=== PATIENT | male | born 1965 | race Caucasian/White ===

== ENCOUNTER → 2021-02-23 12:20 | Outpatient (CLI) | payer OTHER, MEDICAID, SELFPAY ==
[2021-02-23 20:11] LABS: Alanine Aminotransferase 34 IU/L (<50); Albumin 4.4 g/dL (3.5-5.0); Albumin Globulin Ratio 1.4 (1.0-2.8); Alkaline Phosphatase 105 U/L (38-126); Aspartate Aminotransferase 44 IU/L (17-59); BUN Creatinine Ratio 21.1 (6-22); Bilirubin Total 0.4 mg/dL (0.2-1.3); Blood Urea Nitrogen 19 mg/dL (9-20); Calcium 9.8 mg/dL (8.4-10.2); Carbon Dioxide 29 mmol/L (22-32); Chloride 105 mmol/L (98-107); Estimated Glomerular Filt Rate > 60.0 mL/min (>60); Globulin 3.2 g/dL (1.7-4.1); Glucose 101 mg/dL (70-100); HEMOLYSIS < 15 (0-50); Potassium 4.7 mmol/L (3.4-5.1); Sodium 141 mmol/L (137-145); Total Protein 7.6 g/dL (6.3-8.2)
== END ==
PROVIDERS: PCP Physician Assistant Medical; Visit Provider Physician Assistant Medical
DX: M72.0 Palmar fascial fibromatosis [Dupuytren] (principal); R29.898 Other symptoms and signs involving the musculoskeletal system
CPT/HCPCS: 80053

== ENCOUNTER 2022-05-03 15:21 | Observation (INO) | payer OTHER, MEDICAID, SELFPAY ==
[2022-05-03] VITALS (39 sets, daily range): BP systolic 120–177; BP diastolic 77–123; PULSE 88–151; RESP 11–41; TEMP 36.6; O2SAT 93–99; BMI 25.1
[2022-05-03 15:47] LABS: Add Manual Diff / Slide Review NO; Basophils Absolute Auto 100 /uL (0-100); Basophils Percent Auto 0.8 % (0-2); Eosinophils Absolute Auto 0 /uL (0-450); Eosinophils Percent Auto 0.2 % (2-4); Hematocrit 38.6 % (41-53); Hemoglobin 13.4 g/dL (13.5-17.5); Lymphocytes Absolute Auto 1200 /uL (1100-4500); Lymphocytes Percent Auto 13.8 % (25-40); Mean Corpuscular HGB Conc 34.8 % (30-36); Mean Corpuscular Hemoglobin 35.7 PG (26-34); Mean Corpuscular Volume 102.6 fL (80-100); Monocytes Absolute Auto 900 /uL (0-900); Monocytes Percent Auto 10.5 % (3-14); Neutrophils Absolute Auto 6400 /uL (1500-7000); Neutrophils Percent Auto 74.7 % (50-75); Platelet Count 134 X10^3/uL (150-400); Red Blood Cell Count 3.76 X10^6/uL (4.5-5.9); Red Cell Distribution Width 13.3 % (11.6-14.8); White Blood Cell Count 8.5 X10^3/uL (4.5-11.0)
--- NOTE | 2022-05-03 15:59 | ED_ITS ---
HPI - Seizure General Chief Complaint: Seizure Stated Complaint: seizure Time Seen by Provider: 05/03/22 15:46 Source: patient and EMS Mode of arrival: EMS Limitations: no limitations History of Present Illness HPI Narrative: Patient is a 57-year-old male who was brought to the emergency department for was reported to be a witnessed seizure. He staying at a hotel with a friend. The patient does admit to smoking marijuana but denies any other drugs. Does have an alcohol history of but states he has not drank in the past 24 hours. He was at the hotel with his friend when he had the seizure that was witnessed by his friend. His friend is 1 who contacted EMS. The patient does not remember the event. EMS states that there were drug paraphernalia around the individual though the patient denies any drug use. Here in the emergency department he reports no specific complaints. Does have some palpitations but no headache, shortness of breath, abdominal pain, joint pain, muscle pain. Related Data Home Medications Medication Instructions Recorded Confirmed No Known Home Medications 02/23/21 05/03/22 Allergies Allergy/AdvReac Type Severity Reaction Status Date / Time bee venom protein (honey bee) Allergy Severe Anaphylaxis Verified 05/03/22 19:24 Review of Systems Review of Systems ROS Unobtainable: All systems reviewed & are unremarkable except as noted in HPI and below Patient History Medical History Anxiety and depression (~1989) Chicken pox (~1969) Substance abuse (~1987) Social History Smoking Status: Current every day smoker Smoking Status: Current every day smoker alcohol intake frequency: 3 or more drinks per day Alcohol type: hard liquor Substance Use Type: marijuana Exam Initial Vital Signs Initial Vital Signs: Vital Signs Pulse Rate 151 H 05/03/22 15:19 Respiratory Rate 35 H 05/03/22 15:19 Blood Pressure 138/102 H 05/03/22 15:19 Pulse Oximetry 97 05/03/22 15:19 Oxygen Delivery Method 05/03/22 15:19 Const General: cooperative and No ill appearing HENMT Head: normal to inspection and normocephalic Chest Chest: normal inspection of the chest Resp Effort & Inspection: normal respiratory effort Auscultation: clear to auscultation bilaterally Cardio Rate: tachycardic Rhythm: regular rhythm GI Inspection: normal to inspection Skin General: no rashes or lesions noted Neuro General: patient alert, patient awake, patient oriented x3 and moves all extremities Cognition: normal cognition Speech: speech normal Extrem General: normal to inspection and capillary refill normal Psych Appearance: disheveled Scores GCS Main coma scale eye opening: Spontaneous Main coma scale verbal response: Orientated [place] coma scale motor response: Obey commands [place] coma scale total score: 15 Course Orders Ordered: ED Orders 05/03/22 15:20 Complete Blood Count AUTO DIFF Stat Comprehensive Metabolic Panel Stat Ethanol (ETOH) Stat 05/03/22 15:26 EKG-12 Lead Stat 05/03/22 18:40 Urine Drug Screen, Rapid Stat 05/03/22 18:58 Ictotest Urine Stat Urinalysis and Microscopic Stat Urine Culture Stat 05/03/22 19:30 BMP [Basic Metabolic Panel] Stat Lactate (Lactic Acid) Stat Procalcitonin Stat Troponin & CK Cardiac Panel Stat 05/03/22 19:31 Prolactin Stat 05/03/22 19:32 CT head/brain wo con Stat Sodium Chloride (Normal Saline 0.9%) 1,000 mls @ 1,000 mls/hr IV BOLUS ONE Stop: 05/03/22 19:43 Last Admin: 05/03/22 18:56 Dose: 1,000 mls/hr Documented By: DESIRAE Sodium Chloride (Normal Saline 0.9%) 1,000 mls @ 1,000 mls/hr IV BOLUS ONE Stop: 05/03/22 20:29 Discontinued Medications Lorazepam (Lorazepam 2 Mg/Ml Inj) 1 mg IV NOW ONE Stop: 05/03/22 18:45 Last Admin: 05/03/22 18:55 Dose: 1 mg Documented By: DESIRAE Metoprolol Tartrate (Metoprolol Tartrate 5 Mg/5 Ml Inj) 5 mg IV NOW ONE Stop: 05/03/22 16:00 Last Admin: 05/03/22 16:09 Dose: 5 mg Documented By: AT Vital Signs Vital signs: Vital Signs - 8 hr 05/03/22 15:22 05/03/22 15:19 05/03/22 15:19 Temperature 97.8 F Pulse Rate 150 H 151 H Respiratory Rate 24 35 H Blood Pressure 138/102 H 138/102 H Pulse Oximetry 96 97 Oxygen Delivery Method Room Air Room Air 05/03/22 15:30 05/03/22 15:56 05/03/22 15:56 Temperature Pulse Rate 149 H 144 H Respiratory Rate 25 H 22 Blood Pressure 120/97 H Pulse Oximetry 97 97 Oxygen Delivery Method Room Air 05/03/22 16:00 05/03/22 16:00 05/03/22 16:11 Temperature Pulse Rate 143 H 139 H Respiratory Rate 20 22 Blood Pressure 148/101 H Pulse Oximetry 96 98 Oxygen Delivery Method Room Air 05/03/22 16:11 05/03/22 16:13 05/03/22 16:13 Temperature Pulse Rate 125 H Respiratory Rate 21 Blood Pressure 156/77 H 145/83 H Pulse Oximetry 98 Oxygen Delivery Method 05/03/22 16:15 05/03/22 16:15 05/03/22 16:25 Temperature Pulse Rate 115 H 105 H Respiratory Rate 23 24 Blood Pressure 143/88 H Pulse Oximetry 98 95 Oxygen Delivery Method Room Air 05/03/22 16:25 05/03/22 16:30 05/03/22 16:30 Temperature Pulse Rate 101 H Respiratory Rate 23 Blood Pressure 153/102 H 150/102 H Pulse Oximetry 97 Oxygen Delivery Method Room Air 05/03/22 16:35 05/03/22 16:35 05/03/22 16:40 Temperature Pulse Rate 99 H 97 H Respiratory Rate 19 20 Blood Pressure 150/102 H Pulse Oximetry 95 95 Oxygen Delivery Method 05/03/22 16:40 05/03/22 16:45 05/03/22 16:45 Temperature Pulse Rate 98 H Respiratory Rate 25 H Blood Pressure 162/108 H 155/108 H Pulse Oximetry 95 Oxygen Delivery Method 05/03/22 17:00 05/03/22 17:00 05/03/22 17:15 Temperature Pulse Rate 101 H 102 H Respiratory Rate 25 H 18 Blood Pressure 157/103 H Pulse Oximetry 98 95 Oxygen Delivery Method Room Air 05/03/22 17:15 05/03/22 17:30 05/03/22 17:30 Temperature Pulse Rate 107 H Respiratory Rate 20 Blood Pressure 148/102 H 148/102 H Pulse Oximetry 98 Oxygen Delivery Method 05/03/22 17:45 05/03/22 17:45 05/03/22 17:50 Temperature Pulse Rate 116 H 106 H Respiratory Rate 23 17 Blood Pressure 177/114 H Pulse Oximetry 97 98 Oxygen Delivery Method 05/03/22 17:50 05/03/22 18:00 05/03/22 18:00 Temperature Pulse Rate 105 H Respiratory Rate 16 Blood Pressure 161/110 H 162/107 H Pulse Oximetry 97 Oxygen Delivery Method 05/03/22 18:30 05/03/22 18:49 05/03/22 18:49 Temperature Pulse Rate 103 H 139 H Respiratory Rate 25 H 41 H Blood Pressure 173/115 H Pulse Oximetry 96 98 Oxygen Delivery Method 05/03/22 19:00 05/03/22 19:01 05/03/22 19:01 Temperature Pulse Rate 111 H 112 H Respiratory Rate 22 28 H Blood Pressure 160/106 H Pulse Oximetry 96 95 Oxygen Delivery Method 05/03/22 19:15 05/03/22 19:15 Temperature Pulse Rate 106 H Respiratory Rate 26 H Blood Pressure 160/110 H Pulse Oximetry 95 Oxygen Delivery Method Room Air MDM - Seizure Lab Data Attestation: I reviewed the patient's lab results. Result diagrams: 05/03/22 15:20 05/03/22 15:20 Labs: Lab Results 05/03/22 05/03/22 05/03/22 Range/Units 15:20 15:20 15:20 WBC 8.5 (4.5-11.0) X10^3/uL RBC 3.76 L (4.5-5.9) X10^6/uL Hgb 13.4 L (13.5-17.5) g/dL Hct 38.6 L (41-53) % MCV 102.6 H (80-100) fL MCH 35.7 H (26-34) PG MCHC 34.8 (30-36) % RDW 13.3 (11.6-14.8) % Plt Count 134 L (150-400) X10^3/uL Neut % (Auto) 74.7 (50-75) % Lymph % (Auto) 13.8 L (25-40) % [place] % (Auto) 10.5 (3-14) % Eos % (Auto) 0.2 L (2-4) % Baso % (Auto) 0.8 (0-2) % Neut # (Auto) 6400 (9958-5159) /uL Lymph # (Auto) 1200 (3042-1129) /uL [place] # (Auto) 900 (0-900) /uL Eos # (Auto) 0 (0-450) /uL Baso # (Auto) 100 (0-100) /uL Sodium 136 L (137-145) mmol/L Potassium 3.3 L (3.4-5.1) mmol/L Chloride 91 L (98-107) mmol/L Carbon Dioxide 14 L (22-32) mmol/L BUN 10 (9-20) mg/dL Creatinine 0.81 (0.66-1.25) mg/dL Estimated GFR > 60 (>60) mL/min BUN/Creatinine Ratio 12.3 (6-22) Glucose 178 H (70-100) mg/dL Calcium 9.0 (8.4-10.2) mg/dL Total Bilirubin 2.6 H (0.2-1.3) mg/dL AST 228 H (17-59) IU/L ALT 55 H (<50) IU/L Alkaline Phosphatase 143 H (38-126) U/L Total Protein 8.9 H (6.3-8.2) g/dL Albumin 4.8 (3.5-5.0) g/dL Globulin 4.1 (1.7-4.1) g/dL Albumin/Globulin Ratio 1.2 (1.0-2.8) Urine Color Urine Appearance Urine pH (4.5-8.0) Ur Specific [place] (1.000-1.035) Urine Protein (Negative) Urine Glucose (UA) (Negative) g/dL Urine Ketones (NEGATIVE) Urine Occult Blood (Negative) Urine Nitrate (Negative) Urine Bilirubin (NEGATIVE) Ur Bilirubin Confirm (Negative) Urine Urobilinogen (0.2) E.U./dL Ur Leukocyte Esterase (NEGATIVE) Urine RBC (0-5/HPF) Urine WBC (0-5/HPF) Ur Squamous Epith Cells (0-5/HPF) Amorphous Sediment Urine Bacteria (None) Hyaline Casts (None) Urine Mucus (Negative) Ur Culture Indicated? U Opiates 300ng/mL cut (Negative) Ur Oxycodone Screen (Negative) Urine Methadone Screen (Negative) Ur Barbiturates Screen (Negative) U Tricyclic Antidepress (Negative) Ur Phencyclidine Scrn (Negative) Ur Amphetamines Screen (Negative) U Methamphetamines Scrn (Negative) Ur MDMA Scrn (Ecstasy) (Negative) U Benzodiazepines Scrn (Negative) Urine Cocaine Screen (Negative) U Marijuana (THC) Screen (Negative) Ethyl Alcohol < 10 ( - 10) mg/dL 05/03/22 05/03/22 Range/Units 18:40 18:58 WBC (4.5-11.0) X10^3/uL RBC (4.5-5.9) X10^6/uL Hgb (13.5-17.5) g/dL Hct (41-53) % MCV (80-100) fL MCH (26-34) PG MCHC (30-36) % RDW (11.6-14.8) % Plt Count (150-400) X10^3/uL Neut % (Auto) (50-75) % Lymph % (Auto) (25-40) % [place] % (Auto) (3-14) % Eos % (Auto) (2-4) % Baso % (Auto) (0-2) % Neut # (Auto) (5735-7034) /uL Lymph # (Auto) (2229-0846) /uL [place] # (Auto) (0-900) /uL Eos # (Auto) (0-450) /uL Baso # (Auto) (0-100) /uL Sodium (137-145) mmol/L Potassium (3.4-5.1) mmol/L Chloride (98-107) mmol/L Carbon Dioxide (22-32) mmol/L BUN (9-20) mg/dL Creatinine (0.66-1.25) mg/dL Estimated GFR (>60) mL/min BUN/Creatinine Ratio (6-22) Glucose (70-100) mg/dL Calcium (8.4-10.2) mg/dL Total Bilirubin (0.2-1.3) mg/dL AST (17-59) IU/L ALT (<50) IU/L Alkaline Phosphatase (38-126) U/L Total Protein (6.3-8.2) g/dL Albumin (3.5-5.0) g/dL Globulin (1.7-4.1) g/dL Albumin/Globulin Ratio (1.0-2.8) Urine Color Dark yellow Urine Appearance Clear Urine pH 6.5 (4.5-8.0) Ur Specific [place] 1.020 (1.000-1.035) Urine Protein 3+ H (Negative) Urine Glucose (UA) Negative (Negative) g/dL Urine Ketones 1+ H (NEGATIVE) Urine Occult Blood 2+ H (Negative) Urine Nitrate Negative (Negative) Urine Bilirubin 2+ H (NEGATIVE) Ur Bilirubin Confirm Positive H (Negative) Urine Urobilinogen 4.0 H (0.2) E.U./dL Ur Leukocyte Esterase Trace H (NEGATIVE) Urine RBC 1-5/hpf (0-5/HPF) Urine WBC 1-5/hpf (0-5/HPF) Ur Squamous Epith Cells 0-1 /hpf (0-5/HPF) Amorphous Sediment 1+ Urine Bacteria Occasional (0-1) (None) Hyaline Casts 5-10/lpf (None) Urine Mucus 1+ H (Negative) Ur Culture Indicated? Specimen cultured U Opiates 300ng/mL cut Negative (Negative) Ur Oxycodone Screen Negative (Negative) Urine Methadone Screen Negative (Negative) Ur Barbiturates Screen Negative (Negative) U Tricyclic Antidepress Negative (Negative) Ur Phencyclidine Scrn Negative (Negative) Ur Amphetamines Screen Negative (Negative) U Methamphetamines Scrn Negative (Negative) Ur MDMA Scrn (Ecstasy) Negative (Negative) U Benzodiazepines Scrn Negative (Negative) Urine Cocaine Screen Negative (Negative) U Marijuana (THC) Screen Positive H (Negative) Ethyl Alcohol ( - 10) mg/dL ECG Data Attestation: I personally reviewed and interpreted this ECG as follows: Interpretation: Initial EKG Sinus tachycardia Ventricular rate 147 Normal axis Normal QRS Normal QTC No ST T wave changes Repeat EKG Sinus rhythm Ventricular rate 99 Normal axis Normal QRS Normal QTC No ST T wave changes MDM Narrative Medical decision making narrative: Per EMS this did sound like a seizure. Patient has never had seizures in the past. He was not postictal here in the ER. Patient tachycardic upon arrival. After short period of observation is tachycardic did not improve so he was given labetalol which then did bring his heart rate down to the low 100s. He is no specific complaints related to the seizures. No joint pain. No muscle pain. No neck pain. No headache. He denies alcohol use nor drug use except for marijuana. Patient is afebrile. No abdominal tenderness. Patient is having shaking. He is alert oriented x3. GCS of 15. Attempted to stand the patient at bedside however he was very unsteady and was shaking. Additional lab tests ordered. Alcohol level negative. Is acidotic on his BNP. Fluids administered. Rate continues to be less than 105. Care turned over to Dr. Youngblood at change of shift to continue to evaluate and disposition. Discharge Plan Departure Prescriptions: No Action No Known Home Medications Referrals: Teresa Davila PA-C [Primary Care Provider] -
[2022-05-03 16:00] LABS: Albumin 4.8 g/dL (3.5-5.0); Albumin Globulin Ratio 1.2 (1.0-2.8); Alkaline Phosphatase 143 U/L (38-126); BUN Creatinine Ratio 12.3 (6-22); Bilirubin Total 2.6 mg/dL (0.2-1.3); Blood Urea Nitrogen 10 mg/dL (9-20); Carbon Dioxide 14 mmol/L (22-32); Chloride 91 mmol/L (98-107); Estimated Glomerular Filt Rate > 60 mL/min (>60); Globulin 4.1 g/dL (1.7-4.1); Glucose 178 mg/dL (70-100); HEMOLYSIS < 15 (0-50); Potassium 3.3 mmol/L (3.4-5.1); Sodium 136 mmol/L (137-145); Total Protein 8.9 g/dL (6.3-8.2)
[2022-05-03 16:06] LABS: Aspartate Aminotransferase 228 IU/L (17-59)
[2022-05-03 16:07] LABS: Alanine Aminotransferase 55 IU/L (<50)
[2022-05-03] MEDS: METOPROLOL TARTRATE 5 MG/5 ML INJ IV (16:09)
--- NOTE | 2022-05-03 18:12 | PC.NURSE ---
pt states he doesn't drink alcohol much, and hasn't drank in days. i asked pt to sit up to prepare for ambulation and he started having tremors when he reach for the railing.
[2022-05-03] MEDS: LORazepam 2 MG/ML INJ 1 MG IV ×2 (18:55→21:02)
[2022-05-03] MEDS: SODIUM CHLORIDE 0.9% 1,000 ML 1000 ML IV ×2 (18:56→20:16)
[2022-05-03 19:04] LABS: Ur Creatinine Normal (Normal); Ur Specific Gravity Normal (Normal); Urine pH Normal (Normal)
[2022-05-03 19:05] LABS: UR Morphine/Opiate cutoff 300 Negative (Negative); Urine Amphetamines Negative (Negative); Urine Barbiturates Negative (Negative); Urine Benzodiazepines Negative (Negative); Urine Cocaine Negative (Negative); Urine MDMA Negative (Negative); Urine Methadone Negative (Negative); Urine Methamphetamines Negative (Negative); Urine Oxycodone Negative (Negative); Urine Phencyclidine Negative (Negative); Urine Tetrahydrocannabinol Positive (Negative); Urine Tricyclic Antidepressant Negative (Negative)
[2022-05-03 19:11] LABS: Appearance Urine UA CLEAR; Bilirubin Urine UA 2+ (NEGATIVE); Glucose Urine UA NEGATIVE (Negative); Ketones Urine UA 1+ (NEGATIVE); Leukocyte Esterase Urine UA TRACE (NEGATIVE); Nitrite Urine UA NEGATIVE (Negative); Occult Blood Urine UA 2+ (Negative); Protein Urine UA 3+ (Negative); pH Urine UA 6.5 (4.5-8.0)
[2022-05-03 19:17] LABS: Ethanol (ETOH) < 10 mg/dL
[2022-05-03 19:21] LABS: Color Urine UA Dark Yellow
--- NOTE | 2022-05-03 19:22 | PC.NURSE ---
Pt sitting up in stretcher using personal phone, hands tremoring, pt breathing even and unlabored, denies pain at this time.
[2022-05-03 19:24] LABS: Amorphous Sediment Urine 1+; Bacteria Urine Occasional (0-1); Culture Indicated Urine Specimen Cultured; Hyaline Casts Urine 5-10/LPF; Ictotest Urine Positive (Negative); Mucus Urine 1+ (Negative); RBC Urine 1-5/HPF (0-5/HPF); Squamous Epithelial Cell Urine 0-1 /HPF (0-5/HPF); WBC Urine 1-5/HPF (0-5/HPF)
--- NOTE | 2022-05-03 19:32 | DI.CT.S_ITS ---
PROCEDURE: CT HEAD/BRAIN WO CON INDICATIONS: new seizure TECHNIQUE: Noncontrast 4.5 mm thick angled axial sections acquired from the foramen magnum to the vertex, with coronal and sagittal reformats. For radiation dose reduction, the following was used: automated exposure control, adjustment of mA and/or kV according to patient size. COMPARISON: None. FINDINGS: Image quality: Excellent. CSF spaces: Basal cisterns are patent. No extra-axial fluid collections. Ventricles are normal in size and shape. Brain: No intracranial hemorrhage, mass, or mass effect. Jimenez-white matter interface appears preserved. Skull and face: Calvarium and visualized facial bones are intact, without suspicious lesions. Sinuses: Visualized sinuses and mastoids are clear. IMPRESSION: 1. No acute intracranial abnormality. Dictated by: Mario Parra M.D. on 05/03/2022 at 20:02 Approved by: Mario Parra M.D. on 05/03/2022 at 20:05
[2022-05-03 19:56] LABS: Creatine Kinase 182 U/L (55-170)
[2022-05-03 20:04] LABS: BUN Creatinine Ratio 16.7 (6-22); Blood Urea Nitrogen 11 mg/dL (9-20); Calcium 8.2 mg/dL (8.4-10.2); Carbon Dioxide 27 mmol/L (22-32); Chloride 93 mmol/L (98-107); Estimated Glomerular Filt Rate > 60 mL/min (>60); Glucose 105 mg/dL (70-100); HEMOLYSIS < 15 (0-50); Potassium 3.2 mmol/L (3.4-5.1); Sodium 134 mmol/L (137-145)
[2022-05-03 20:08] LABS: Lactate (Lactic Acid) 12.5 mmol/L (0.7-2.1)
[2022-05-03 20:09] LABS: Troponin I < 0.012 ng/mL (0.01-0.034)
[2022-05-03 20:11] LABS: CKMB % Relative Index 1.3 % (1.5-5.0); Creatine Kinase MB 2.41 ng/mL (<2.37)
[2022-05-03 20:14] LABS: Procalcitonin 0.21 ng/mL (<0.5)
[2022-05-03] MEDS: PHENobarbital 65 MG/ML VIAL 130 MG IV (21:02)
[2022-05-03 21:23] LABS: COVID19 -Nasal RAPID Negative (Negative)
[2022-05-03 21:45] LABS: Reflexed Lactate in 2 Hours Y
[2022-05-04] VITALS (23 sets, daily range): BP systolic 135–157; BP diastolic 91–114; PULSE 84–122; RESP 3–79; TEMP 36.6–37.4; O2SAT 94–99; BMI 25.1
--- NOTE | 2022-05-04 00:30 | DI.US.S_ITS ---
PROCEDURE: US ABDOMEN LIMITED INDICATIONS: CHOLESTATIC INJURY - please evaluate for HEPATOBILIARY DISEASE TECHNIQUE: Real-time focused scanning was performed of the abdomen, with image documentation. COMPARISON: None. FINDINGS: The liver demonstrates enlarged size. The liver demonstrates generalized prominently increased echogenicity. This decreases ultrasound sensitivity for detection of hepatic masses. The likely cyst is seen involving the left lobe of the liver that measures up to 1 cm. Evaluation of the main portal vein is limited, secondary to the liver echogenicity, without good detection of flow within the main portal vein. The gallbladder is prominent in size measuring 9.8 x 4 x 2.4 cm. No findings of gallstones or sludge are seen. The gallbladder wall is not thickened, measuring 3 mm or less. No specific pericholecystic fluid is seen. The sonographic Kline sign is negative. The biliary system and pancreas are not well seen. This study is further limited by bowel gas. IMPRESSION: Enlarged, fatty liver, which limits evaluation. No significant gallbladder abnormality is seen. The biliary tree is not well seen. Flow within the main portal vein is not well seen. If clinically appropriate, please consider a follow-up liver protocol CT (without and with contrast) for further evaluation. Dictated by: Joe Singh M.D. on 05/04/2022 at 8:24 Approved by: Joe Singh M.D. on 05/04/2022 at 8:26
[2022-05-04 01:27] LABS: INR 1.5 (0.9-1.3); Prothrombin Time 17.3 SECONDS (10.1-12.7)
[2022-05-04 01:30] LABS: Ammonia (NH3) 16 umol/L (9-30)
[2022-05-04 01:31] LABS: Alanine Aminotransferase 35 IU/L (<50); Albumin 4.1 g/dL (3.5-5.0); Albumin Globulin Ratio 1.1 (1.0-2.8); Alkaline Phosphatase 117 U/L (38-126); Aspartate Aminotransferase 176 IU/L (17-59); Bilirubin Total 2.5 mg/dL (0.2-1.3); Bilirubin Unconjugated 1.5 mg/dL (0.0-1.1); Globulin 3.6 g/dL (1.7-4.1); HEMOLYSIS < 15 (0-50); Lactate Dehydrogenase 253 U/L (120-246); Total Protein 7.7 g/dL (6.3-8.2)
[2022-05-04 01:41] LABS: Gamma Glutamyl Transpeptidase 2231 U/L (15-73)
[2022-05-04 01:47] LABS: NT-proBNP (BNP-Adult 18+) 185 pg/mL (<125)
[2022-05-04] MEDS: SODIUM CHLORIDE 0.9% 1,000 ML 100 ML IV (03:13)
--- NOTE | 2022-05-04 06:05 | PM.HP.1 ---
History of Present Illness History of Present Illness Date Patient Seen: 05/04/22 Time Patient Seen: 00:23 Chief complaint: seizure Narrative: Lane Bernstein is a 57-year-old male with no significant medical history who was brought to the emergency department for was reported to be a witnessed seizure.? He staying at a hotel with a friend.? The patient does admit to smoking marijuana but denies any other drugs.? Does have an alcohol history of but states he has not drank in the past 72 hours.? He was at the hotel with his friend when he had the seizure that was witnessed by his friend.? His friend is 1 who contacted EMS.? The patient does not remember the event.? EMS states that there were drug paraphernalia around the individual though the patient denies any drug use.? Here in the emergency department he reports no specific complaints.? Does have some palpitations but no headache, shortness of breath, abdominal pain, joint pain, muscle pain. Patiently reportedly drinks approximately 1 pt of vodka a day and has done so for several decades daily smoker and uses marijuana no other substances. At the time of admit patient is resting more comfortably, denies chest pain, shortness breast, headache, changes in vision, weakness, numbness, abdominal pain, nausea, vomiting, tremors have resolved, urinary symptoms, bowel issues, no known falls, loss of consciousness is not hit his head, skin infections, recent illness injury or trauma. Temp 97.8?, BP initially 168/123 HR 113, R 28, O2 saturation 99% on room air. Repeat blood pressure 152/96, HGB 13.4/HCT 38.6, MCV 102.6, MCH 35.7, platelets 134, sodium 134, chloride 93, bili 2.6, AST 228, ALT 55, alk-phos 143 calcium 8.2, lactate 12.5, repeat 1.0, total creatinine kinase 182, CK-2:2.41, initial troponin WNL, total protein 8.9, procalcitonin WNL, tox screen positive for THC, alcohol WNL, patient's urine was positive for protein 3+, ketones 1+, blood 2+, bili 2+, urobilinogen 4 urine culture pending patient has a are factor: 1, head CT is negative for any acute intracranial process. Patient admitted for acute alcohol withdrawal with reported witnessed seizure, hypokalemia, hyper bilirubinemia and elevated liver enzymes. Patient History Medical History Anxiety and depression (~1989) Chicken pox (~1969) Substance abuse (~1987) Comment: No surgical history Family & Social History Family History Mother Depression Father Parkinson's disease, Lewy body Safety & Behavioral: Feels Safe in Current Yes Environment Been Physically Hurt or No Threatened By a Person Tobacco & Substance use: Smoking Status Current every day smoker alcohol intake frequency 3 or more drinks per day -1 pt of vodka daily for several decades Substance Use Type marijuana Meds Home Medications and Allergies Home Medications Medication Instructions Recorded Confirmed Type No Known Home Medications 02/23/21 05/03/22 History Allergies Allergy/AdvReac Type Severity Reaction Status Date / Time bee venom protein (honey bee) Allergy Severe Anaphylaxis Verified 05/03/22 19:24 Review of Systems Review of Systems Narrative: All 12 point systems reviewed with the patient and are negative except otherwise documented. Exam Vital Signs (past 8 hours): - 05/03/22 22:15 05/03/22 22:15 05/03/22 22:30 Pulse Rate 88 Respiratory Rate 24 Blood Pressure 162/106 H 161/113 H Pulse Oximetry 98 Oxygen Delivery Method 05/03/22 22:30 05/03/22 22:45 05/03/22 22:45 Pulse Rate 93 H 93 H Respiratory Rate 19 23 Blood Pressure 150/99 H Pulse Oximetry 97 96 Oxygen Delivery Method Room Air 05/03/22 23:00 05/03/22 23:01 05/03/22 23:01 Pulse Rate 117 H 113 H Respiratory Rate 29 H 28 H Blood Pressure 168/123 H Pulse Oximetry 99 99 Oxygen Delivery Method 05/03/22 23:30 05/04/22 00:00 05/04/22 00:00 Pulse Rate 91 H 92 H Respiratory Rate 22 24 Blood Pressure 157/102 H Pulse Oximetry 97 97 Oxygen Delivery Method 05/04/22 00:30 05/04/22 00:56 05/04/22 00:56 Pulse Rate 94 H 118 H Respiratory Rate 26 H 3 L Blood Pressure 153/103 H Pulse Oximetry 97 97 Oxygen Delivery Method 05/04/22 01:00 05/04/22 01:00 05/04/22 01:30 Pulse Rate 113 H 97 H Respiratory Rate 8 L 21 Blood Pressure 154/95 H Pulse Oximetry 96 96 Oxygen Delivery Method 05/04/22 02:00 05/04/22 02:00 05/04/22 02:30 Pulse Rate 101 H 90 Respiratory Rate 28 H 21 Blood Pressure 155/104 H Pulse Oximetry 98 94 Oxygen Delivery Method 05/04/22 03:00 05/04/22 03:18 05/04/22 03:18 Pulse Rate 96 H 103 H Respiratory Rate 13 16 Blood Pressure 156/98 H 156/98 H Pulse Oximetry 96 98 Oxygen Delivery Method 05/04/22 03:30 05/04/22 04:00 05/04/22 04:00 Pulse Rate 91 H 84 Respiratory Rate 22 14 Blood Pressure 144/91 H Pulse Oximetry 96 96 Oxygen Delivery Method 05/04/22 04:30 Pulse Rate 110 H Respiratory Rate 79 H Blood Pressure Pulse Oximetry 94 Oxygen Delivery Method Oxygen Delivery Method Room Air Narrative Exam Narrative: General: Patient is a well-developed, well-nourished in no distress at this time. HEENT: Normocephalic, atraumatic, extraocular muscles intact, oral pharynx is clear and mucous membranes are moist. Neck is supple and symmetric, trachea is midline, no adenopathy, no thyroid enlargement, nontender, no masses palpated. Negative for JVD Chest: Normal AP diameter and contour without kyphoscoliosis, no nasal flaring, retractions, or tachypneic labored Lungs: Auscultation of all lung genao are clear without adventitious sounds, wheezes, rhonchi, or rales. Cardio: S1 & S2 with regular rate and rhythm without murmur, rubs, or gallops, no carotid bruit, no cardiac pulsations present. Abdomen: Soft nontender, negative for organomegaly, or masses. Bowel sounds are present in all 4 quadrants without guarding or rebound, no CVA tenderness. Musculoskeletal: Muscle strength and tone are equal within normal limits, no deformity, crepitus, effusions, cyanosis, clubbing or edema present. Full range of motion intact radial and pedal pulses are normal. Skin: No icterus noted, Warm dry and intact without rashes, ulcerations or petechiae. Neuro: Alert and orientated x3, strength is +5/5 in all extremities, sensation to touch intact, no gross deficits noted of cranial nerves. Psych: Patient has a well-kept appearance, appropriate affect, mental status attitude thought context and judgment are appropriate for age. Objective Labs Result Diagrams: 05/03/22 15:20 05/03/22 19:36 Labs: Laboratory Results - last 24 hr 05/03/22 05/03/22 05/03/22 15:20 15:20 15:20 WBC 8.5 RBC 3.76 L Hgb 13.4 L Hct 38.6 L MCV 102.6 H MCH 35.7 H MCHC 34.8 RDW 13.3 Plt Count 134 L Neut % (Auto) 74.7 Lymph % (Auto) 13.8 L [place] % (Auto) 10.5 Eos % (Auto) 0.2 L Baso % (Auto) 0.8 Neut # (Auto) 6400 Lymph # (Auto) 1200 [place] # (Auto) 900 Eos # (Auto) 0 Baso # (Auto) 100 PT INR Sodium 136 L Potassium 3.3 L Chloride 91 L Carbon Dioxide 14 L BUN 10 Creatinine 0.81 Estimated GFR > 60 BUN/Creatinine Ratio 12.3 Glucose 178 H Lactate Calcium 9.0 Magnesium Total Bilirubin 2.6 H Conjugated Bilirubin Unconjugated Bilirubin GGT AST 228 H ALT 55 H Alkaline Phosphatase 143 H Ammonia Lactate Dehydrogenase Total Creatine Kinase 182 H CK-MB (CK-2) 2.41 H CK-MB (CK-2) Rel Index 1.3 L Troponin I < 0.012 NT-Pro-B Natriuret Pep Total Protein 8.9 H Albumin 4.8 Globulin 4.1 Albumin/Globulin Ratio 1.2 Procalcitonin 0.21 Prolactin Urine Color Urine Appearance Urine pH Ur Specific [place] Urine Protein Urine Glucose (UA) Urine Ketones Urine Occult Blood Urine Nitrate Urine Bilirubin Ur Bilirubin Confirm Urine Urobilinogen Ur Leukocyte Esterase Urine RBC Urine WBC Ur Squamous Epith Cells Amorphous Sediment Urine Bacteria Hyaline Casts Urine Mucus Ur Culture Indicated? U Opiates 300ng/mL cut Ur Oxycodone Screen Urine Methadone Screen Ur Barbiturates Screen U Tricyclic Antidepress Ur Phencyclidine Scrn Ur Amphetamines Screen U Methamphetamines Scrn Ur MDMA Scrn (Ecstasy) U Benzodiazepines Scrn Urine Cocaine Screen U Marijuana (THC) Screen Ethyl Alcohol < 10 SARS-CoV-2 (PCR) 05/03/22 05/03/22 05/03/22 15:20 18:40 18:58 WBC RBC Hgb Hct MCV MCH MCHC RDW Plt Count Neut % (Auto) Lymph % (Auto) [place] % (Auto) Eos % (Auto) Baso % (Auto) Neut # (Auto) Lymph # (Auto) [place] # (Auto) Eos # (Auto) Baso # (Auto) PT INR Sodium Potassium Chloride Carbon Dioxide BUN Creatinine Estimated GFR BUN/Creatinine Ratio Glucose Lactate 12.5 H* Calcium Magnesium Total Bilirubin Conjugated Bilirubin Unconjugated Bilirubin GGT AST ALT Alkaline Phosphatase Ammonia Lactate Dehydrogenase Total Creatine Kinase CK-MB (CK-2) CK-MB (CK-2) Rel Index Troponin I NT-Pro-B Natriuret Pep Total Protein Albumin Globulin Albumin/Globulin Ratio Procalcitonin Prolactin Urine Color Dark yellow Urine Appearance Clear Urine pH 6.5 Ur Specific [place] 1.020 Urine Protein 3+ H Urine Glucose (UA) Negative Urine Ketones 1+ H Urine Occult Blood 2+ H Urine Nitrate Negative Urine Bilirubin 2+ H Ur Bilirubin Confirm Positive H Urine Urobilinogen 4.0 H Ur Leukocyte Esterase Trace H Urine RBC 1-5/hpf Urine WBC 1-5/hpf Ur Squamous Epith Cells 0-1 /hpf Amorphous Sediment 1+ Urine Bacteria Occasional (0-1) Hyaline Casts 5-10/lpf Urine Mucus 1+ H Ur Culture Indicated? Specimen cultured U Opiates 300ng/mL cut Negative Ur Oxycodone Screen Negative Urine Methadone Screen Negative Ur Barbiturates Screen Negative U Tricyclic Antidepress Negative Ur Phencyclidine Scrn Negative Ur Amphetamines Screen Negative U Methamphetamines Scrn Negative Ur MDMA Scrn (Ecstasy) Negative U Benzodiazepines Scrn Negative Urine Cocaine Screen Negative U Marijuana (THC) Screen Positive H Ethyl Alcohol SARS-CoV-2 (PCR) 05/03/22 05/03/22 05/03/22 19:30 19:36 19:36 WBC RBC Hgb Hct MCV MCH MCHC RDW Plt Count Neut % (Auto) Lymph % (Auto) [place] % (Auto) Eos % (Auto) Baso % (Auto) Neut # (Auto) Lymph # (Auto) [place] # (Auto) Eos # (Auto) Baso # (Auto) PT INR Sodium 134 L Potassium 3.2 L Chloride 93 L Carbon Dioxide 27 BUN 11 Creatinine 0.66 Estimated GFR > 60 BUN/Creatinine Ratio 16.7 Glucose 105 H Lactate 1.0 Calcium 8.2 L Magnesium Total Bilirubin Conjugated Bilirubin Unconjugated Bilirubin GGT AST ALT Alkaline Phosphatase Ammonia Lactate Dehydrogenase Total Creatine Kinase CK-MB (CK-2) CK-MB (CK-2) Rel Index Troponin I NT-Pro-B Natriuret Pep Total Protein Albumin Globulin Albumin/Globulin Ratio Procalcitonin Prolactin 5.0 Urine Color Urine Appearance Urine pH Ur Specific [place] Urine Protein Urine Glucose (UA) Urine Ketones Urine Occult Blood Urine Nitrate Urine Bilirubin Ur Bilirubin Confirm Urine Urobilinogen Ur Leukocyte Esterase Urine RBC Urine WBC Ur Squamous Epith Cells Amorphous Sediment Urine Bacteria Hyaline Casts Urine Mucus Ur Culture Indicated? U Opiates 300ng/mL cut Ur Oxycodone Screen Urine Methadone Screen Ur Barbiturates Screen U Tricyclic Antidepress Ur Phencyclidine Scrn Ur Amphetamines Screen U Methamphetamines Scrn Ur MDMA Scrn (Ecstasy) U Benzodiazepines Scrn Urine Cocaine Screen U Marijuana (THC) Screen Ethyl Alcohol SARS-CoV-2 (PCR) 05/03/22 05/04/22 05/04/22 21:07 01:11 01:11 WBC RBC Hgb Hct MCV MCH MCHC RDW Plt Count Neut % (Auto) Lymph % (Auto) [place] % (Auto) Eos % (Auto) Baso % (Auto) Neut # (Auto) Lymph # (Auto) [place] # (Auto) Eos # (Auto) Baso # (Auto) PT 17.3 H INR 1.5 H Sodium Potassium Chloride Carbon Dioxide BUN Creatinine Estimated GFR BUN/Creatinine Ratio Glucose Lactate Calcium Magnesium 1.0 L Total Bilirubin Conjugated Bilirubin Unconjugated Bilirubin GGT AST ALT Alkaline Phosphatase Ammonia Lactate Dehydrogenase Total Creatine Kinase CK-MB (CK-2) CK-MB (CK-2) Rel Index Troponin I NT-Pro-B Natriuret Pep Total Protein Albumin Globulin Albumin/Globulin Ratio Procalcitonin Prolactin Urine Color Urine Appearance Urine pH Ur Specific [place] Urine Protein Urine Glucose (UA) Urine Ketones Urine Occult Blood Urine Nitrate Urine Bilirubin Ur Bilirubin Confirm Urine Urobilinogen Ur Leukocyte Esterase Urine RBC Urine WBC Ur Squamous Epith Cells Amorphous Sediment Urine Bacteria Hyaline Casts Urine Mucus Ur Culture Indicated? U Opiates 300ng/mL cut Ur Oxycodone Screen Urine Methadone Screen Ur Barbiturates Screen U Tricyclic Antidepress Ur Phencyclidine Scrn Ur Amphetamines Screen U Methamphetamines Scrn Ur MDMA Scrn (Ecstasy) U Benzodiazepines Scrn Urine Cocaine Screen U Marijuana (THC) Screen Ethyl Alcohol SARS-CoV-2 (PCR) Negative 05/04/22 05/04/22 05/04/22 01:11 01:11 01:11 WBC RBC Hgb Hct MCV MCH MCHC RDW Plt Count Neut % (Auto) Lymph % (Auto) [place] % (Auto) Eos % (Auto) Baso % (Auto) Neut # (Auto) Lymph # (Auto) [place] # (Auto) Eos # (Auto) Baso # (Auto) PT INR Sodium Potassium Chloride Carbon Dioxide BUN Creatinine Estimated GFR BUN/Creatinine Ratio Glucose Lactate Calcium Magnesium Total Bilirubin 2.5 H Conjugated Bilirubin 0.0 Unconjugated Bilirubin 1.5 H GGT 2231 H AST 176 H ALT 35 Alkaline Phosphatase 117 Ammonia 16 Lactate Dehydrogenase 253 H Total Creatine Kinase CK-MB (CK-2) CK-MB (CK-2) Rel Index Troponin I NT-Pro-B Natriuret Pep 185 H Total Protein 7.7 Albumin 4.1 Globulin 3.6 Albumin/Globulin Ratio 1.1 Procalcitonin Prolactin Urine Color Urine Appearance Urine pH Ur Specific [place] Urine Protein Urine Glucose (UA) Urine Ketones Urine Occult Blood Urine Nitrate Urine Bilirubin Ur Bilirubin Confirm Urine Urobilinogen Ur Leukocyte Esterase Urine RBC Urine WBC Ur Squamous Epith Cells Amorphous Sediment Urine Bacteria Hyaline Casts Urine Mucus Ur Culture Indicated? U Opiates 300ng/mL cut Ur Oxycodone Screen Urine Methadone Screen Ur Barbiturates Screen U Tricyclic Antidepress Ur Phencyclidine Scrn Ur Amphetamines Screen U Methamphetamines Scrn Ur MDMA Scrn (Ecstasy) U Benzodiazepines Scrn Urine Cocaine Screen U Marijuana (THC) Screen Ethyl Alcohol SARS-CoV-2 (PCR) Assessment & Plan Assessment & Plan narrative: Lane Bernstein is a 57-year-old male with no significant medical history who was brought to the emergency department for was reported to be a witnessed seizure, secondary to acute alcohol withdrawal times 72 hours. Patient has no known history of seizure disorder, is admitted for acute alcohol withdrawal. 1. Acute alcohol withdrawal, with reported seizure, long-term alcohol abuse, acute on chronic, present on admission -patient was initially thought to be admitted to the ICU but was found to be hemodynamically stable withdrawal symptoms controlled with medication and no signs or symptoms of seizure so was changed to acute care admit status. Patient is currently boarding in ED -patient admitted under alcohol withdrawal protocol, thiamine and folic acid, seizure precautions, aspiration precautions, neuro checks as needed. -patient was given a loading dose of phenobarbital in ED, through the night will continue with 130 mg IV dose of phenobarbital as needed for>sbp 150, HR>110, or withdrawal agitation -will initiate phenobarbital oral Peewee: 60 mg p.o. q.i.d. day 1, 60 mg p.o. t.i.d. day 2, 60 mg p.o. b.i.d. day 3, 60 mg p.o. q.day -NS at 100 cc/HR 2. Hypokalemia, acute, present on admission secondary to alcohol withdrawal/abuse, present on admission -potassium 3.2-ordered p.o. 40 mEq potassium supplement -monitor electrolytes 3. Elevated liver enzymes with hyperbilirubinemia, acute, present on admission -R factor: 1-bili 2.6, AST 228, ALT 55, alk-phos 143, urine positive for bilirubin, and urobilinogen -labs are suggestive of cholestatic injury, and or direct hepatobiliary disease -ordered abdominal ultrasound -ordered lipids, magnesium, hepatitis panel, ammonia, LDH, GGT Code status: Full Surrogate decision maker: Adela Bernstein sister GALILEO PCR:Negative DVT/VTE prophylaxis: Lovenox and SCDs Disposition: Patient admitted to acute care for alcohol withdrawal with possible seizure, possible cholestatic injury expected length of stay greater than 2 midnights. I have utilized all available immediate resources to obtain, update, or review the patient's current medications. I confirmed that the patient's advanced care plan is present, Code status is documented and/or surrogate decision maker is listed in the patient's medical record. I have personally reviewed patient's chart notes from PCP, specialists, diagnostic imaging, and laboratory, Time Spent With Patient Critical Care time: I spent a total of [] minutes of critical care time on this patient's care today; this time is exclusive of procedural time.
[2022-05-04] MEDS: POTASSIUM CHLORIDE 20 MEQ TAB 40 MEQ PO (06:45)
[2022-05-04] MEDS: PANTOPRAZOLE DR 40 MG TABLET PO (06:45)
[2022-05-04] MEDS: MAGNESIUM SULFATE 4 GM/100 ML PIGGYBACK IV (06:45)
[2022-05-04 06:49] LABS: Add Manual Diff / Slide Review NO; Basophils Absolute Auto 100 /uL (0-100); Basophils Percent Auto 0.9 % (0-2); Eosinophils Absolute Auto 0 /uL (0-450); Eosinophils Percent Auto 0.6 % (2-4); Hematocrit 36.1 % (41-53); Hemoglobin 12.6 g/dL (13.5-17.5); Lymphocytes Absolute Auto 900 /uL (1100-4500); Lymphocytes Percent Auto 17.3 % (25-40); Mean Corpuscular Hemoglobin 35.3 PG (26-34); Monocytes Absolute Auto 500 /uL (0-900); Monocytes Percent Auto 9.6 % (3-14); Neutrophils Absolute Auto 3900 /uL (1500-7000); Neutrophils Percent Auto 71.6 % (50-75); Red Blood Cell Count 3.57 X10^6/uL (4.5-5.9); Red Cell Distribution Width 13.4 % (11.6-14.8); White Blood Cell Count 5.5 X10^3/uL (4.5-11.0)
[2022-05-04 06:53] LABS: Platelet Count 77 X10^3/uL (150-400)
[2022-05-04 07:00] LABS: Alanine Aminotransferase 38 IU/L (<50); Albumin Globulin Ratio 1.1 (1.0-2.8); Alkaline Phosphatase 103 U/L (38-126); Aspartate Aminotransferase 182 IU/L (17-59); BUN Creatinine Ratio 13.6 (6-22); Bilirubin Total 2.6 mg/dL (0.2-1.3); Blood Urea Nitrogen 8 mg/dL (9-20); Calcium 7.9 mg/dL (8.4-10.2); Carbon Dioxide 26 mmol/L (22-32); Chloride 96 mmol/L (98-107); Cholesterol 197 mg/dL (140-199); Estimated Glomerular Filt Rate > 60 mL/min (>60); Globulin 3.6 g/dL (1.7-4.1); Glucose 95 mg/dL (70-100); HDL Cholesterol 40 mg/dL (40-60); HEMOLYSIS < 15 (0-50); LDL Cholesterol Calculated 132 mg/dL (<100); Magnesium 1.1 mg/dL (1.6-2.3); Potassium 3.1 mmol/L (3.4-5.1); Sodium 133 mmol/L (137-145); Total Protein 7.6 g/dL (6.3-8.2); Triglycerides 123 mg/dL (35-150)
[2022-05-04] MEDS: ENOXAPARIN 40 MG/0.4 ML SYRINGE SUBCUT (09:21)
[2022-05-04] MEDS: THIAMINE 100 MG TABLET PO (10:32)
[2022-05-04] MEDS: FOLIC ACID 1 MG TABLET PO (10:32)
[2022-05-04] MEDS: MULTIVITAMIN 1 TABLET 1 TAB PO (10:32)
--- NOTE | 2022-05-04 11:13 | PC.NURSE ---
Addendum entered by Brunilda Osullivan R.N. 05/04/22 17:44: Patient given tylenol and is sleeping comfortably in his bed, friend at bedside. Original Note: Assess- Patient is alert and oriented x4. His CIWA is a 4. Patient has some anxiety and moderate tremors from withdrawing from alcohol. Patient does drink about 1/5 a day, and has hx of some drug abuse. Skin is mostly clear, he does have some scratches on his fingers, and a bruise to his r.upper arm. He is on a general diet, and his abdominal ultrasound has been done this morning. Patient given some vitamins earlier and has a magnesium iv hanging. He is tolerating this and resting at this time.
[2022-05-04] MEDS: ACETAMINOPHEN 325 MG TABLET 650 MG PO (15:34)
[2022-05-04] MEDS: LORazepam 2 MG/ML INJ IV (21:45)
[2022-05-05 06:00] VITALS: BP 156/108; PULSE 90; RESP 18; TEMP 36.6; O2SAT 99
[2022-05-05] MEDS: PANTOPRAZOLE DR 40 MG TABLET PO (06:05)
[2022-05-05 06:32] LABS: Add Manual Diff / Slide Review NO; Basophils Absolute Auto 0 /uL (0-100); Basophils Percent Auto 0.4 % (0-2); Eosinophils Absolute Auto 100 /uL (0-450); Eosinophils Percent Auto 1.4 % (2-4); Hematocrit 34.9 % (41-53); Hemoglobin 12.2 g/dL (13.5-17.5); Lymphocytes Absolute Auto 1100 /uL (1100-4500); Mean Corpuscular Hemoglobin 35.5 PG (26-34); Mean Corpuscular Volume 101.2 fL (80-100); Monocytes Absolute Auto 500 /uL (0-900); Neutrophils Absolute Auto 3000 /uL (1500-7000); Neutrophils Percent Auto 63.2 % (50-75); Platelet Count 76 X10^3/uL (150-400); Red Blood Cell Count 3.45 X10^6/uL (4.5-5.9); Red Cell Distribution Width 13.3 % (11.6-14.8); White Blood Cell Count 4.7 X10^3/uL (4.5-11.0)
[2022-05-05 06:46] LABS: Alanine Aminotransferase 38 IU/L (<50); Albumin 3.9 g/dL (3.5-5.0); Albumin Globulin Ratio 1.1 (1.0-2.8); Alkaline Phosphatase 108 U/L (38-126); Aspartate Aminotransferase 140 IU/L (17-59); BUN Creatinine Ratio 7.8 (6-22); Bilirubin Total 1.9 mg/dL (0.2-1.3); Blood Urea Nitrogen 5 mg/dL (9-20); Calcium 7.8 mg/dL (8.4-10.2); Carbon Dioxide 28 mmol/L (22-32); Chloride 101 mmol/L (98-107); Estimated Glomerular Filt Rate > 60 mL/min (>60); Globulin 3.4 g/dL (1.7-4.1); Glucose 99 mg/dL (70-100); HEMOLYSIS < 15 (0-50); Magnesium 1.7 mg/dL (1.6-2.3); Potassium 3.7 mmol/L (3.4-5.1); Sodium 138 mmol/L (137-145); Total Protein 7.3 g/dL (6.3-8.2)
[2022-05-05 07:00] VITALS: BP 150/96; PULSE 87; RESP 16; TEMP 36.4; O2SAT 98
--- NOTE | 2022-05-05 07:42 | P.PN_ITS ---
Exam Vital Signs (past 8 hours): - 05/05/22 06:00 Temperature 97.8 F Pulse Rate 90 Respiratory Rate 18 Blood Pressure 156/108 H Pulse Oximetry 99 Oxygen Flow Rate 0 Oxygen Delivery Method Room Air Oxygen Flow Rate 0 Narrative Exam Narrative: General: Patient is a well-developed, well-nourished in no distress at this time. HEENT: Normocephalic, atraumatic, extraocular muscles intact, oral pharynx is clear and mucous membranes are moist. Neck is supple and symmetric, trachea is midline, no adenopathy, no thyroid enlargement, nontender, no masses palpated. Negative for JVD Chest: Normal AP diameter and contour without kyphoscoliosis, no nasal flaring, retractions, or tachypneic labored Lungs: Auscultation of all lung genao are clear without adventitious sounds, wheezes, rhonchi, or rales. Cardio: S1 & S2 with regular rate and rhythm without murmur, rubs, or gallops, no carotid bruit, no cardiac pulsations present. Abdomen: Soft nontender, negative for organomegaly, or masses. Bowel sounds are present in all 4 quadrants without guarding or rebound, no CVA tenderness. Musculoskeletal: Muscle strength and tone are equal within normal limits, no deformity, crepitus, effusions, cyanosis, clubbing or edema present. Full range of motion intact radial and pedal pulses are normal. Skin: No icterus noted, Warm dry and intact without rashes, ulcerations or petechiae. Neuro: Alert and orientated x3, strength is +5/5 in all extremities, sensation to touch intact, no gross deficits noted of cranial nerves. Psych: Patient has a well-kept appearance, appropriate affect, mental status attitude thought context and judgment are appropriate for age. Objective Labs Result Diagrams: 05/05/22 06:00 05/05/22 06:00 Labs: Laboratory Results - last 24 hr 05/05/22 05/05/22 06:00 06:00 WBC 4.7 RBC 3.45 L Hgb 12.2 L Hct 34.9 L MCV 101.2 H MCH 35.5 H MCHC 35.0 RDW 13.3 Plt Count 76 L Neut % (Auto) 63.2 Lymph % (Auto) 24.0 L [place] % (Auto) 11.0 Eos % (Auto) 1.4 L Baso % (Auto) 0.4 Neut # (Auto) 3000 Lymph # (Auto) 1100 [place] # (Auto) 500 Eos # (Auto) 100 Baso # (Auto) 0 Sodium 138 Potassium 3.7 Chloride 101 Carbon Dioxide 28 BUN 5 L Creatinine 0.64 L Estimated GFR > 60 BUN/Creatinine Ratio 7.8 Glucose 99 Calcium 7.8 L Magnesium 1.7 Total Bilirubin 1.9 H AST 140 H ALT 38 Alkaline Phosphatase 108 Total Protein 7.3 Albumin 3.9 Globulin 3.4 Albumin/Globulin Ratio 1.1 [facility] [place] Medical History Anxiety and depression (~1989) Chicken pox (~1969) Substance abuse (~1987) Family History Mother Depression Father Parkinson's disease, Lewy body Social History household members: friend(s) Smoking Status: Current every day smoker alcohol intake: current Assessment & Plan Assessment & Plan narrative: Lane Bernstein is a 57-year-old male with no significant medical history who was brought to the emergency department for was reported to be a witnessed seizure, secondary to acute alcohol withdrawal times 72 hours. Patient has no known history of seizure disorder, is admitted for acute alcohol withdrawal. 1. Acute alcohol withdrawal, with reported seizure, long-term alcohol abuse, acute on chronic, present on admission -patient was initially thought to be admitted to the ICU but was found to be hemodynamically stable withdrawal symptoms controlled with medication and no signs or symptoms of seizure so was changed to acute care admit status. Patient is currently boarding in ED -patient admitted under alcohol withdrawal protocol, thiamine and folic acid, seizure precautions, aspiration precautions, neuro checks as needed. -patient was given a loading dose of phenobarbital in ED, through the night will continue with 130 mg IV dose of phenobarbital as needed for>sbp 150, HR>110, or withdrawal agitation -will initiate phenobarbital oral Peewee: 60 mg p.o. q.i.d. day 1, 60 mg p.o. t.i.d. day 2, 60 mg p.o. b.i.d. day 3, 60 mg p.o. q.day -NS at 100 cc/HR 2. Hypokalemia, acute, present on admission secondary to alcohol withdrawal/abuse, present on admission -potassium 3.2-ordered p.o. 40 mEq potassium supplement -monitor electrolytes 3. Elevated liver enzymes with hyperbilirubinemia, acute, present on admission -R factor: 1-bili 2.6, AST 228, ALT 55, alk-phos 143, urine positive for bilirubin, and urobilinogen -labs are suggestive of cholestatic injury, and or direct hepatobiliary disease -ordered abdominal ultrasound -ordered lipids, magnesium, hepatitis panel, ammonia, LDH, GGT Code status: Full Surrogate decision maker: Adela Bernstein sister COVID PCR:Negative DVT/VTE prophylaxis: Lovenox and SCDs Disposition: Time Spent With Patient Critical Care time: I spent a total of [] minutes of critical care time on this patient's care today; this time is exclusive of procedural time.
--- NOTE | 2022-05-05 07:53 | P.DS_ITS ---
History of Present Illness History of Present Illness Date Patient Seen: 05/05/22 Time Patient Seen: 08:00 Chief complaint: seizure Narrative: Lane Bernstein is a 57-year-old male with no significant medical history who was brought to the emergency department for was reported to be a witnessed seizure.? He staying at a hotel with a friend.? The patient does admit to smoking marijuana but denies any other drugs.? Does have an alcohol history of but states he has not drank in the past 72 hours.? He was at the hotel with his friend when he had the seizure that was witnessed by his friend.? His friend is 1 who contacted EMS.? The patient does not remember the event.? EMS states that there were drug paraphernalia around the individual though the patient denies a ny drug use.? Here in the emergency department he reports no specific complaints.? Does have some palpitations but no headache, shortness of breath, abdominal pain, joint pain, muscle pain. Patiently reportedly drinks approximately 1 pt of vodka a day and has done so for several decades daily smoker and uses marijuana no other substances. At the time of admit patient is resting more comfortably, denies chest pain, shortness breast, headache, changes in vision, weakness, numbness, abdominal pain, nausea, vomiting, tremors have resolved, urinary symptoms, bowel issues, no known falls, loss of consciousness is not hit his head, skin infections, recent illness injury or trauma. Temp 97.8?, BP initially 168/123 HR 113, R 28, O2 saturation 99% on room air.? Repeat blood pressure 152/96, HGB 13.4/HCT 38.6, MCV 102.6, MCH 35.7, platelets 134, sodium 134, chloride 93, bili 2.6, AST 228, ALT 55, alk-phos 143 calcium 8.2, lactate 12.5, repeat 1.0, total creatinine kinase 182, CK-2:2.41, initial troponin WNL, total protein 8.9, procalcitonin WNL, tox screen positive for THC, alcohol WNL, patient's urine was positive for protein 3+, ketones 1+, blood 2+, bili 2+, urobilinogen 4 urine culture pending patient has a are factor: 1, head CT is negative for any acute intracranial process.? Patient admitted for acute alcohol withdrawal with reported witnessed seizure, hypokalemia, hyper bilirubi nemia and elevated liver enzymes. Discharge Providers Provider Date of admission: 05/03/22 23:04 Discharge Date: 05/05/22 Primary care physician: Teresa Davila PA-C Consults: 05/04/22 00:02 Consult to Dietitian, Adult Routine Comment: Reason For Exam: ETOH w/d 05/04/22 10:47 Consult to INTERNET ASSESSOR - Lead Systems Architect Routine Comment: Discharge provider: Javy Durant DO Summary Hospital Course Discharge Diagnosis: 1. Acute alcohol withdrawal, with reported seizure, long-term alcohol abuse, acute on chronic, present on admission -patient was initially thought to be admitted to the ICU but was found to be hemodynamically stable withdrawal symptoms controlled with medication and no signs or symptoms of seizure so was changed to acute care admit status. Patient is currently boarding in ED -patient admitted under alcohol withdrawal protocol, thiamine and folic acid, seizure precautions, aspiration precautions, neuro checks as needed. -required low doses of IV ativan 2. Hypokalemia, acute, present on admission secondary to alcohol withdrawal/abuse, present on admission -potassium 3.2-ordered p.o. 40 mEq potassium supplement -monitor electrolytes -improved to 3.7 3. Elevated liver enzymes with hyperbilirubinemia, acute, present on admission bili 2.6, AST 228, ALT 55, alk-phos 143, urine positive for bilirubin, and urobilinogen -abd US without biliary or gallbladder pathology, fatty liver present -likely due to acute alcohol injury and fatty liver Hospital Course: Lane Bernstein is a 57-year-old male with no significant medical history who was brought to the emergency department for was reported to be a witnessed seizure, secondary to acute alcohol withdrawal times 72 hours. Patient has no known history of seizure disorder, is admitted for acute alcohol withdrawal. He only needed low doses of ativan and no further siezures occurred. Abd US ordered due to elevated AST and alk phos which showed fatty liver and no gallbladder or biliary pathology. He was discharged with a prescription for topiramate to take daily for alcohol dependence with seizures. Time Spent with Patient Time spent: Greater than 30 minutes Exam Vital Signs (past 8 hours): - 05/05/22 06:00 05/05/22 07:00 Temperature 97.8 F 97.6 F Pulse Rate 90 87 Respiratory Rate 18 16 Blood Pressure 156/108 H 150/96 H Pulse Oximetry 99 98 Oxygen Flow Rate 0 0 Oxygen Delivery Method Room Air Oxygen Flow Rate 0 Narrative Exam Narrative: General: Patient is a well-developed, well-nourished in no distress at this time. No tremors. HEENT: Normocephalic, atraumatic, extraocular muscles intact, oral pharynx is clear and mucous membranes are moist. Neck is supple and symmetric, trachea is midline, no adenopathy, no thyroid enlargement, nontender, no masses palpated. Negative for JVD Chest: Normal AP diameter and contour without kyphoscoliosis, no nasal flaring, retractions, or tachypneic labored Lungs: Auscultation of all lung genao are clear without adventitious sounds, wheezes, rhonchi, or rales. Cardio: S1 & S2 with regular rate and rhythm without murmur, rubs, or gallops, no carotid bruit, no cardiac pulsations present. Abdomen: Soft nontender, negative for organomegaly, or masses. Bowel sounds are present in all 4 quadrants without guarding or rebound, no CVA tenderness. Musculoskeletal: Muscle strength and tone are equal within normal limits, no deformity, crepitus, effusions, cyanosis, clubbing or edema present. Full range of motion intact radial and pedal pulses are normal. Skin: No icterus noted, Warm dry and intact without rashes, ulcerations or petechiae. Neuro: Alert and orientated x3, strength is +5/5 in all extremities, sensation to touch intact, no gross deficits noted of cranial nerves. Psych: Patient has a well-kept appearance, appropriate affect, mental status attitude thought context and judgment are appropriate for age. Objective Labs Result Diagrams: 05/05/22 06:00 05/05/22 06:00 Labs: Laboratory Results - last 24 hr 05/05/22 05/05/22 06:00 06:00 WBC 4.7 RBC 3.45 L Hgb 12.2 L Hct 34.9 L MCV 101.2 H MCH 35.5 H MCHC 35.0 RDW 13.3 Plt Count 76 L Neut % (Auto) 63.2 Lymph % (Auto) 24.0 L [place] % (Auto) 11.0 Eos % (Auto) 1.4 L Baso % (Auto) 0.4 Neut # (Auto) 3000 Lymph # (Auto) 1100 [place] # (Auto) 500 Eos # (Auto) 100 Baso # (Auto) 0 Sodium 138 Potassium 3.7 Chloride 101 Carbon Dioxide 28 BUN 5 L Creatinine 0.64 L Estimated GFR > 60 BUN/Creatinine Ratio 7.8 Glucose 99 Calcium 7.8 L Magnesium 1.7 Total Bilirubin 1.9 H AST 140 H ALT 38 Alkaline Phosphatase 108 Total Protein 7.3 Albumin 3.9 Globulin 3.4 Albumin/Globulin Ratio 1.1 [facility] Medical History Anxiety and depression (~1989) Chicken pox (~1969) Substance abuse (~1987) Family History Mother Depression Father Parkinson's disease, Lewy body Social History household members: friend(s) Smoking Status: Current every day smoker alcohol intake: current Discharge Plan Discharge Plan Patient Disposition: Home Provider Discharge Comment: You were admitted for alcohol withdrawals. I've sent a prescription for a medication to take daily which can help lower your dependence on alcohol and hopefully eventually become sober, if that is what your ultimate goal is. Discharge orders & Medications Prescriptions: New topiramate 25 mg tablet 25 mg PO DAILY Qty: 30 0RF Continued No Known Home Medications Follow up/Referrals: Teresa Davila, PAKeyC [Primary Care Provider] - 2 Weeks Visit Report/Discharge Packet Instructions: Topiramate Treatments Improve Quality of Life for People With Alcohol Depen, Alcohol Withdrawal Discharge Data Primary Care Provider: Teresa Davila Attending Provider: Julisa Silvestre
[2022-05-05] MEDS: ACETAMINOPHEN 325 MG TABLET 650 MG PO (08:11)
[2022-05-05] MEDS: FOLIC ACID 1 MG TABLET PO (08:12)
[2022-05-05] MEDS: MULTIVITAMIN 1 TABLET 1 TAB PO (08:12)
[2022-05-05] MEDS: THIAMINE 100 MG TABLET PO (08:12)
[2022-05-05] MEDS: MAGNESIUM CHLORIDE 64 MG TABLET 128 MG PO (08:47)
--- NOTE | 2022-05-05 09:16 | PC.NURSE ---
Day shift: Paperwork signed and all questions answered. script sent to Pt's pharmacy. Pt has all personal belongings. Taken to car via WC by DARBY Tobin at approx [phone]. Pt's friend will be driving him today. Pt encouraged to stop drinking and to seek help.
--- NOTE | 2022-05-05 11:06 | CM.DANOTE ---
DC assessment Brief: Patient is a 57 yr old male here with Alcohol withdrawal and HX of withdrawal seizures. CM met with patient in his room as he was getting his things together to [place]. CM introduced self to patient and explained role. Patient was A&O x4 however a little anxious. Patient stated he wanted to get out of here repeatedly, CM asked Patient if he would be interested in Rehab, AA or detox information? patient stated NO I have got it and then preceded to walk past and leave with his friend to [place]. Patient has no identified DC planning needs at this time. Stacey Martinez RNjunior project manager Discharge Planning/Care Management Discharge Assessment Start: 05/05/22 11:03 Freq: Status: Discharge Protocol: Document 05/05/22 11:03 (Rec: 05/05/22 11:06 [email or web address]) Discharge Planning Assessment Assigned Analytical Lab Technician Stacey Martinez RN Case manger Advance Directives? No Advance Directives on File No History Provided By Patient,Medical Record Has Patient been admitted in last 30 No days? Prior Living Arrangements Homeless Comment Currently staying in hotel room with friend Household Members friend(s) Independent with ADL's Yes Is patient alert and oriented? has high anxiety Caregiver for Another No Comment Patient wanted to DC.... no needs identified.... not interested in Detox or rehab information Barriers to Discharge No Discharge Plan Homeless Correction Transportation Arrangement patients friend will pick him up at [place] Referrals Initiated None needed Whiteboard Updated in Patient Room with Yes name and ext. # of Analytical Lab Technician Review Status In Process Next Review Type Continued Stay Review
== END 2022-05-05 09:55 | disposition home or self-care (01) ==
LOC: ED 22:56 → AC 05-04 13:59
PROVIDERS: Emergency Medicine; Admitting Provider Nurse Practitioner Family; Emergency Provider Emergency Medicine; PCP Physician Assistant Medical; Referring Provider Emergency Medicine; Visit Provider Nurse Practitioner Family
DX: F10.139 Alcohol abuse with withdrawal, unspecified (principal); G40.89 Other seizures; E87.6 Hypokalemia; E80.6 Other disorders of bilirubin metabolism; F12.90 Cannabis use, unspecified, uncomplicated; Y90.0 Blood alcohol level of less than 20 mg/100 ml; F17.210 Nicotine dependence, cigarettes, uncomplicated; Z20.822 Contact with and (suspected) exposure to COVID-19
CPT/HCPCS: 36415; 70450; 76705; 80048; 80053; 80061; 80076; 80305; 80320; 81001; 82140; 82550; 82553; 82977; 83605; 83615; 83735; 83880; 84145; 84146; 84484; 85025; 85610; 87086; 87635; 93005; 96361; 96372; 96374; 96375; 96376; 99285; C9803; G0378; J1650; J2060; J2560; J3475

== ENCOUNTER 2022-11-29 16:08 | Inpatient (IN) | payer OTHER, MEDICAID, SELFPAY ==
[2022-05-04 10:34] VITALS: BMI 25.1
[2022-11-29] VITALS (20 sets, daily range): BP systolic 113–144; BP diastolic 65–106; PULSE 116–129; RESP 16–34; TEMP 37.1; O2SAT 91–99; BMI 27.4
[2022-11-29 16:32] LABS: Prothrombin Time 22.9 SECONDS (10.1-12.7)
[2022-11-29 16:36] LABS: Add Manual Diff / Slide Review NO; Basophils Absolute Auto 0 /uL (0-100); Basophils Percent Auto 0.3 % (0-2); Eosinophils Absolute Auto 100 /uL (0-450); Hemoglobin 10.3 g/dL (13.5-17.5); Lymphocytes Absolute Auto 2700 /uL (1100-4500); Mean Corpuscular HGB Conc 34.3 % (30-36); Mean Corpuscular Hemoglobin 34.8 PG (26-34); Mean Corpuscular Volume 101.4 fL (80-100); Monocytes Absolute Auto 700 /uL (0-900); Neutrophils Absolute Auto 5500 /uL (1500-7000); Neutrophils Percent Auto 60.7 % (50-75); Platelet Count 185 X10^3/uL (150-400); Red Blood Cell Count 2.96 X10^6/uL (4.5-5.9); White Blood Cell Count 9.1 X10^3/uL (4.5-11.0)
[2022-11-29 16:37] LABS: Alanine Aminotransferase 24 IU/L (<50); Albumin 2.8 g/dL (3.5-5.0); Albumin Globulin Ratio 0.7 (1.0-2.8); Alkaline Phosphatase 182 U/L (38-126); Aspartate Aminotransferase 130 IU/L (17-59); BUN Creatinine Ratio 11.4 (6-22); Blood Urea Nitrogen 8 mg/dL (9-20); Calcium 7.8 mg/dL (8.4-10.2); Carbon Dioxide 24 mmol/L (22-32); Chloride 107 mmol/L (98-107); Estimated Glomerular Filt Rate > 60 mL/min (>60); Globulin 4.2 g/dL (1.7-4.1); Glucose 108 mg/dL (70-100); HEMOLYSIS < 15 (0-50); Lipase 289 U/L (23-300); Potassium 4.2 mmol/L (3.4-5.1); Sodium 141 mmol/L (137-145)
[2022-11-29 19:07] LABS: Ictotest Urine Positive (Negative)
[2022-11-29 19:08] LABS: RBC Urine 0-1/HPF (0-5/HPF); WBC Urine 1-5/HPF (0-5/HPF)
[2022-11-29 19:09] LABS: Bacteria Urine Occasional (0-1); Calcium Oxalate Crystals Urine Few; Hyaline Casts Urine 10-30/LPF; Mucus Urine 1+ (Negative); Squamous Epithelial Cell Urine 1-5 /HPF (0-5/HPF)
--- NOTE | 2022-11-29 20:22 | ED.ABDPAIN ---
HPI - Abdominal Pain General Chief Complaint: Abdominal Pain Stated Complaint: Abd Pain, SOB Time Seen by Provider: 11/29/22 17:51 History of Present Illness HPI narrative: Patient is a 57-year-old male history of alcohol abuse previous alcohol withdrawal seizures presents today with abdominal pain and swelling. He reports that he is had swelling ongoing for month he is tried taking [id number] laxatives without any relief. He is having increasing pain and some shortness of breath. No nausea vomiting. He admits to drinking at least a pt daily occasional marijuana use no recent illicit drug use. Denies any fever or chills. Related Data Home Medications Medication Instructions Recorded Confirmed No Known Home Medications 02/23/21 05/03/22 Previous Rx's Medication Instructions Recorded topiramate 25 mg tablet 25 mg PO DAILY #30 tabs 05/05/22 Allergies Allergy/AdvReac Type Severity Reaction Status Date / Time bee venom protein (honey bee) Allergy Severe Anaphylaxis Verified 05/03/22 19:24 Review of Systems Review of Systems ROS Unobtainable: All systems reviewed & are unremarkable except as noted in HPI and below Patient History Medical History Anxiety and depression (~1989) Chicken pox (~1969) Substance abuse (~1987) Family History Mother Depression Father Parkinson's disease, Lewy body Social History household members: friend(s) Smoking Status: Current every day smoker alcohol intake: current Smoking Status: Current every day smoker alcohol intake frequency: 3 or more drinks per day Alcohol type: hard liquor Substance Use Type: marijuana Exam Initial Vital Signs Initial Vital Signs: Vital Signs Pulse Rate 129 H 11/29/22 16:11 Blood Pressure 123/87 11/29/22 16:11 Pulse Oximetry 94 11/29/22 16:11 GENERAL: Alert older appearing 67-year-old male slightly pale and in no acute distress. HEENT: Head atraumatic,EOMI, pupils reactive, face symmetric, moist mucous membranes CARDIOVASCULAR: Regular rate and rhythm without murmurs, rubs or gallops. RESPIRATORY: Breath sounds equal bilaterally, no wheezes rales or rhonchi. ABDOMEN: Soft, distended positive fluid wave no right upper quadrant pain : No CVA tenderness EXTREMITIES: Normal range of motion, no clubbing or edema. Neurovascularly intact NEUROLOGICAL: Alert and oriented x4 SKIN: Warm, dry, no laceration, no petechiae, no rashes or lesions. Course Orders Ordered: ED Orders 11/29/22 20:32 Chest [XR chest 1V] Stat US abdomen limited Stat 11/29/22 20:49 CT chest abd pel w con Stat Acetaminophen (Acetaminophen 325 Mg Tablet) 650 mg PO Q8H PRN PRN Reason: Fever/Mild Pain (1-3) Enoxaparin Sodium (Enoxaparin 40 Mg/0.4 Ml Syringe) 40 mg SUBCUT DAILY MELLISSA Folic Acid (Folic Acid 1 Mg Tablet) 1 mg PO DAILY MELLISSA Furosemide (Furosemide 40 Mg Tablet) 40 mg PO DAILY MELLISSA Last Admin: 11/30/22 00:41 Dose: 40 mg Documented By: PORFIRIO Ceftriaxone Sodium 2,000 mg/ (Sodium Chloride) 100 mls @ 200 mls/hr IV Q24H MELLISSA Last Infusion: 11/30/22 02:30 Dose: 0 mls/hr Documented By: Admin: 11/30/22 01:55 Dose: 200 mls/hr Documented By: DEANNE Albumin Human (Albuminar) 50 gm in 200 mls @ 60 mls/hr IV NOW ONE Stop: 11/30/22 06:53 Lorazepam (Lorazepam 2 Mg/Ml Inj) 0 mg IV CIWAPRN PRN; Protocol PRN Reason: Alcohol Withdrawal Lorazepam (Lorazepam 1 Mg Tablet) 0 mg PO CIWAPRN PRN; Protocol PRN Reason: Alcohol Withdrawal Multivitamins (Multivitamin 1 Tablet) 1 tab PO DAILY [facility] Naloxone HCl (Naloxone 0.4 Mg/Ml Vial) 0.2 mg IV Q2MIN PRN PRN Reason: Opiate Reversal Ondansetron HCl (Ondansetron 4 Mg/2 Ml Inj) 4 mg IV Q8HR PRN PRN Reason: Nausea And Vomiting Pantoprazole Sodium (Pantoprazole Dr 40 Mg Tablet) 40 mg PO 0700 MELLISSA Spironolactone (Spironolactone 25 Mg Tablet) 100 mg PO DAILY MELLISSA Last Admin: 11/30/22 00:41 Dose: 100 mg Documented By: PORFIRIO Thiamine HCl (Thiamine 100 Mg Tablet) 100 mg PO DAILY [facility] Discontinued Medications Sodium Chloride (Normal Saline 0.9%) 500 mls @ 1,000 mls/hr IV BOLUS ONE Stop: 11/29/22 21:01 Last Infusion: 11/29/22 21:17 Dose: 0 mls/hr Documented By: Admin: 11/29/22 20:37 Dose: 1,000 mls/hr Documented By: JAVON Thiamine HCl 500 mg/ Sodium (Chloride) 105 mls @ 420 mls/hr IV TID MELLISSA Last Infusion: 11/30/22 00:57 Dose: 0 mls/hr Documented By: Admin: 11/30/22 00:42 Dose: 420 mls/hr Documented By: PORFIRIO Lidocaine HCl (Lidocaine 1% 20 Ml) 20 ml INJ INTRA-OP ONE Stop: 11/30/22 03:41 Ondansetron HCl (Ondansetron 4 Mg Odt) 4 mg PO NOW PRN PRN Reason: Nausea And Vomiting Ondansetron HCl (Ondansetron 4 Mg/2 Ml Inj) 4 mg IV NOW PRN PRN Reason: Nausea And Vomiting Vital Signs Vital signs: Vital Signs - 8 hr 11/29/22 20:00 11/29/22 20:00 11/29/22 20:30 Pulse Rate 121 H Respiratory Rate 24 Blood Pressure 123/65 122/86 Pulse Oximetry 95 Oxygen Delivery Method Oxygen Flow Rate 11/29/22 20:30 11/29/22 21:00 11/29/22 21:30 Pulse Rate 124 H 121 H Respiratory Rate 33 H Blood Pressure 113/74 Pulse Oximetry 92 94 Oxygen Delivery Method Nasal Cannula Oxygen Flow Rate 2 11/29/22 22:00 11/29/22 22:30 11/29/22 23:00 Pulse Rate 120 H 120 H 125 H Respiratory Rate 28 H 17 31 H Blood Pressure Pulse Oximetry 97 95 94 Oxygen Delivery Method Oxygen Flow Rate 11/29/22 23:14 11/29/22 23:14 11/29/22 23:30 Pulse Rate 124 H 124 H Respiratory Rate 24 24 Blood Pressure 113/74 Pulse Oximetry 95 94 Oxygen Delivery Method Oxygen Flow Rate 11/29/22 23:31 11/29/22 23:31 Pulse Rate 124 H Respiratory Rate 25 H Blood Pressure 121/75 Pulse Oximetry 94 Oxygen Delivery Method Nasal Cannula Oxygen Flow Rate 2 MDM - Abdominal Pain Lab Data 11/30/22 02:00 11/30/22 02:00 Labs: Lab Results 11/29/22 11/29/22 11/29/22 Range/Units 16:16 16:16 16:16 WBC 9.1 (4.5-11.0) X10^3/uL RBC 2.96 L (4.5-5.9) X10^6/uL Hgb 10.3 L (13.5-17.5) g/dL Hct 30.0 L (41-53) % MCV 101.4 H (80-100) fL MCH 34.8 H (26-34) PG MCHC 34.3 (30-36) % RDW 14.0 (11.6-14.8) % Plt Count 185 (150-400) X10^3/uL Neut % (Auto) 60.7 (50-75) % Lymph % (Auto) 30.0 (25-40) % Rankin % (Auto) 8.0 (3-14) % Eos % (Auto) 1.0 L (2-4) % Baso % (Auto) 0.3 (0-2) % Neut # (Auto) 5500 (8158-1866) /uL Lymph # (Auto) 2700 (4089-2979) /uL Rankin # (Auto) 700 (0-900) /uL Eos # (Auto) 100 (0-450) /uL Baso # (Auto) 0 (0-100) /uL PT 22.9 H (10.1-12.7) SECONDS INR 2.0 H (0.9-1.3) Sodium 141 (137-145) mmol/L Potassium 4.2 (3.4-5.1) mmol/L Chloride 107 (98-107) mmol/L Carbon Dioxide 24 (22-32) mmol/L BUN 8 L (9-20) mg/dL Creatinine 0.70 (0.66-1.25) mg/dL Estimated GFR > 60 (>60) mL/min BUN/Creatinine Ratio 11.4 (6-22) Glucose 108 H (70-100) mg/dL Lactate (0.7-2.1) mmol/L Calcium 7.8 L (8.4-10.2) mg/dL Total Bilirubin 3.0 H (0.2-1.3) mg/dL AST 130 H (17-59) IU/L ALT 24 (<50) IU/L Alkaline Phosphatase 182 H (38-126) U/L Total Protein 7.0 (6.3-8.2) g/dL Albumin 2.8 L (3.5-5.0) g/dL Globulin 4.2 H (1.7-4.1) g/dL Albumin/Globulin Ratio 0.7 L (1.0-2.8) Lipase 289 (23-300) U/L Ur Bilirubin Confirm (Negative) Urine RBC (0-5/HPF) Urine WBC (0-5/HPF) Ur Squamous Epith Cells (0-5/HPF) Calcium Oxalate Crystal Urine Bacteria (None) Hyaline Casts (None) Urine Mucus (Negative) U Opiates 300ng/mL cut (Negative) Ur Oxycodone Screen (Negative) Urine Methadone Screen (Negative) Ur Barbiturates Screen (Negative) U Tricyclic Antidepress (Negative) Ur Phencyclidine Scrn (Negative) Ur Amphetamines Screen (Negative) U Methamphetamines Scrn (Negative) Ur MDMA Scrn (Ecstasy) (Negative) U Benzodiazepines Scrn (Negative) Urine Cocaine Screen (Negative) U Marijuana (THC) Screen (Negative) Ethyl Alcohol ( - 10) mg/dL 11/29/22 11/29/22 11/29/22 Range/Units 16:16 16:16 18:51 WBC (4.5-11.0) X10^3/uL RBC (4.5-5.9) X10^6/uL Hgb (13.5-17.5) g/dL Hct (41-53) % MCV (80-100) fL MCH (26-34) PG MCHC (30-36) % RDW (11.6-14.8) % Plt Count (150-400) X10^3/uL Neut % (Auto) (50-75) % Lymph % (Auto) (25-40) % Rankin % (Auto) (3-14) % Eos % (Auto) (2-4) % Baso % (Auto) (0-2) % Neut # (Auto) (3127-5376) /uL Lymph # (Auto) (6540-6574) /uL Rankin # (Auto) (0-900) /uL Eos # (Auto) (0-450) /uL Baso # (Auto) (0-100) /uL PT (10.1-12.7) SECONDS INR (0.9-1.3) Sodium (137-145) mmol/L Potassium (3.4-5.1) mmol/L Chloride (98-107) mmol/L Carbon Dioxide (22-32) mmol/L BUN (9-20) mg/dL Creatinine (0.66-1.25) mg/dL Estimated GFR (>60) mL/min BUN/Creatinine Ratio (6-22) Glucose (70-100) mg/dL Lactate 2.8 H (0.7-2.1) mmol/L Calcium (8.4-10.2) mg/dL Total Bilirubin (0.2-1.3) mg/dL AST (17-59) IU/L ALT (<50) IU/L Alkaline Phosphatase (38-126) U/L Total Protein (6.3-8.2) g/dL Albumin (3.5-5.0) g/dL Globulin (1.7-4.1) g/dL Albumin/Globulin Ratio (1.0-2.8) Lipase (23-300) U/L Ur Bilirubin Confirm Positive H (Negative) Urine RBC (0-5/HPF) Urine WBC (0-5/HPF) Ur Squamous Epith Cells (0-5/HPF) Calcium Oxalate Crystal Urine Bacteria (None) Hyaline Casts (None) Urine Mucus (Negative) U Opiates 300ng/mL cut (Negative) Ur Oxycodone Screen (Negative) Urine Methadone Screen (Negative) Ur Barbiturates Screen (Negative) U Tricyclic Antidepress (Negative) Ur Phencyclidine Scrn (Negative) Ur Amphetamines Screen (Negative) U Methamphetamines Scrn (Negative) Ur MDMA Scrn (Ecstasy) (Negative) U Benzodiazepines Scrn (Negative) Urine Cocaine Screen (Negative) U Marijuana (THC) Screen (Negative) Ethyl Alcohol 391 H ( - 10) mg/dL 11/29/22 11/29/22 Range/Units 18:51 18:51 WBC (4.5-11.0) X10^3/uL RBC (4.5-5.9) X10^6/uL Hgb (13.5-17.5) g/dL Hct (41-53) % MCV (80-100) fL MCH (26-34) PG MCHC (30-36) % RDW (11.6-14.8) % Plt Count (150-400) X10^3/uL Neut % (Auto) (50-75) % Lymph % (Auto) (25-40) % Rankin % (Auto) (3-14) % Eos % (Auto) (2-4) % Baso % (Auto) (0-2) % Neut # (Auto) (7780-8205) /uL Lymph # (Auto) (4266-0410) /uL Rankin # (Auto) (0-900) /uL Eos # (Auto) (0-450) /uL Baso # (Auto) (0-100) /uL PT (10.1-12.7) SECONDS INR (0.9-1.3) Sodium (137-145) mmol/L Potassium (3.4-5.1) mmol/L Chloride (98-107) mmol/L Carbon Dioxide (22-32) mmol/L BUN (9-20) mg/dL Creatinine (0.66-1.25) mg/dL Estimated GFR (>60) mL/min BUN/Creatinine Ratio (6-22) Glucose (70-100) mg/dL Lactate (0.7-2.1) mmol/L Calcium (8.4-10.2) mg/dL Total Bilirubin (0.2-1.3) mg/dL AST (17-59) IU/L ALT (<50) IU/L Alkaline Phosphatase (38-126) U/L Total Protein (6.3-8.2) g/dL Albumin (3.5-5.0) g/dL Globulin (1.7-4.1) g/dL Albumin/Globulin Ratio (1.0-2.8) Lipase (23-300) U/L Ur Bilirubin Confirm (Negative) Urine RBC 0-1/hpf (0-5/HPF) Urine WBC 1-5/hpf (0-5/HPF) Ur Squamous Epith Cells 1-5 /hpf (0-5/HPF) Calcium Oxalate Crystal Few H Urine Bacteria Occasional (0-1) (None) Hyaline Casts 10-30/lpf (None) Urine Mucus 1+ H (Negative) U Opiates 300ng/mL cut Negative (Negative) Ur Oxycodone Screen Negative (Negative) Urine Methadone Screen Negative (Negative) Ur Barbiturates Screen Negative (Negative) U Tricyclic Antidepress Negative (Negative) Ur Phencyclidine Scrn Negative (Negative) Ur Amphetamines Screen Negative (Negative) U Methamphetamines Scrn Negative (Negative) Ur MDMA Scrn (Ecstasy) Negative (Negative) U Benzodiazepines Scrn Negative (Negative) Urine Cocaine Screen Negative (Negative) U Marijuana (THC) Screen Negative (Negative) Ethyl Alcohol ( - 10) mg/dL Point of care testing: Urine Dip Bedside Urine Glucose Negative Bedside Urine Bilirubin + 1 Bedside Urine Ketone - Negative Urine Specific [place] 1.025 Bedside Urine Occult Blood - Negative Bedside Urine pH 6.0 Bedside Urine Protein +/- 15 Bedside Urine Urobilinogen +/- 1mg Bedside Urine Nitrite - Negative Bedside Urine Leukocytes + 70 Esterase Imaging Data US - abdomen: Radiologist's Impression: PROCEDURE: US ABDOMEN LIMITED ? INDICATIONS:? CIRRHOSIS. PLEASE MARICRUZ FOR PARACENTESIS. ? TECHNIQUE:? Real-time focused scanning was performed of the abdomen, with image documentation.? ? COMPARISON:[facility], , US ABDOMEN LIMITED, 05/04/2022, 8:46. ? FINDINGS:? The liver demonstrates normal size.? The liver demonstrates a nodular contour. ?Within the left liver, there is a 1.3 cm septated cyst.? Abnormal hepatofugal flow can be seen within the main portal vein, which is not dilated at 10 mm. ? No findings of gallstones or sludge are seen.? The gallbladder wall is thickened, which is nonspecific in this patient with ascites.? No specific pericholecystic fluid is seen.? The sonographic Kline sign is negative. ? The biliary system and the pancreas are not well seen. ? The spleen is within normal limits for size. ? There is moderate to prominent ascites seen.? A site for paracentesis is marked to the left of the midline within the lower abdomen.? The overlying skin thickness is 1.5 cm. ? ? IMPRESSION:? Cirrhotic liver with ascites. ? The left lower abdomen was marked for paracentesis. ? ? Dictated by: Joe Singh M.D. on 11/29/2022 at 21:26 ? ? Chest x-ray: Radiologist's Impression: PROCEDURE:? XR CHEST 1V ? INDICATIONS:? short of breath ? TECHNIQUE:? One view of the chest was acquired.? ? COMPARISON:? None. ? FINDINGS:? ? Surgical changes and devices:? None.? ? Lungs and pleura:? There is a moderately sized right-sided pleural effusion.? Atelectasis versus infiltrate can be seen within the right mid lung.? The left lung appears clear.? No pneumothorax is seen on either side. ? Mediastinum:? Mediastinal contours appear normal.? Heart size is mildly to moderately enlarged.? ? Bones and chest wall:? No suspicious bony lesions.? Overlying soft tissues appear unremarkable.? IMPRESSION:? A moderate right-sided pleural effusion is seen. ? Within the right lung, there is atelectasis versus infiltrate seen. ? [id number] cardiomegaly. ? ? Dictated by: Joe Singh M.D. on 11/29/2022 at 19:56 ? ? Approved by: Joe Singh M.D. on 11/29/2022 at 19:57 ? CT scan - chest: Radiologist's Impression: PROCEDURE:? CT CHEST ABD PEL W CON ? INDICATIONS:? Hypoxia, cirrhosis ? TECHNIQUE:? After the administration of oral and intravenous contrast, axial sections acquired from the supraclavicular neck to the pubic symphysis.? Coronal and sagittal reformats were performed.? For radiation dose reduction, the following was used:? automated exposure control, adjustment of mA and/or kV according to patient size.? ? COMPARISON: ? [facility], CR, XR CHEST 1V, 11/29/2022, 20:33.? [facility], US, US ABDOMEN LIMITED, 05/04/2022, 8:46. ? FINDINGS:? Image quality:? Excellent.? ? CHEST: Lower Neck: No enlarged lymph nodes.? Thyroid: Within normal limits. Axillae: No enlarged lymph nodes. Chest Wall:? Unremarkable.? ? Lungs and Airways:? Consolidative change can be seen at the right lung base, which is attributed to atelectasis. Pleura:? There is a moderate to large right-sided pleural effusion.? No left-sided pleural effusion is seen.? No pneumothorax. ? Heart: Heart size is normal.? No pericardial effusion.? Moderate coronary artery calcification is seen. Thoracic Vessels: The aorta and pulmonary arteries demonstrate normal size.? Mediastinum and Brittney: No enlarged lymph nodes.? Esophagus: No wall thickening.? There is a moderate hiatal hernia. ? ? ABDOMEN: Liver:? An irregular, cirrhotic appearing liver can be seen.? There is a nonenhancing water density cyst seen on the left, measuring 1 cm, as on series 2, image 46. Gallbladder:? Distended, yet otherwise unremarkable.? ? Biliary ducts:? Unremarkable.? ? Pancreas:? Unremarkable.? ? Spleen:? Unremarkable.? ? Adrenal Glands:? Unremarkable.? ? Kidneys and Ureters:? Unremarkable.? ? ? Stomach and Bowel:? Moderate distal colonic diverticulosis is seen, without earl findings of active diverticulitis.? No additional colonic abnormality is seen. No dilated? loops of small bowel are seen. No significant gastric abnormality is seen. Peritoneum:? There is moderate ascites.? No free air.? ? Ventral Wall: ? No hernia.? Moderate body wall edema is seen. Abdominal Nodes:? No retroperitoneal or mesenteric adenopathy by size criteria.? Vessels:? Aorta and inferior vena cava are normal in size.? ? PELVIS: Pelvic Organs:? Unremarkable.? ? Bladder:? Unremarkable.? ? Pelvic Nodes: No enlarged lymph nodes.? Miscellaneous: No inguinal hernias are seen. ? ? ? Bones:? Focal degenerative change can be seen within the lower lumbar spine.? Milder degenerative changes are seen elsewhere.? ? IMPRESSION:? ? Moderate to large right-sided pleural effusion, with associated atelectasis. ? Cirrhotic appearing liver, with a simple appearing cyst on the left. ? Moderate ascites. ? ? Additional findings:? Moderate coronary artery calcification Moderate hiatal hernia Focal lower lumbar spine degenerative change ? ? Dictated by: Joe Singh M.D. on 11/29/2022 at 21:11 ? ? Approved by: Joe Singh M.D. on 11/29/2022 at 21:15 ? ECG Data Interpretation: Sinus tachycardia rate 126 [place] interval 124 QRS [address] changes MDM Narrative Medical decision making narrative: Patient 57-year-old male history of cirrhosis and alcohol abuse presenting today variety of symptoms including abdominal pain and shortness of breath. He is found to have new onset ascites, confirmed by ultrasound and CT. He is also noted to be persistently tachycardic in the ED heart rate in the 120s. Over his course in the ED he is requiring 1 L of oxygen becoming more tachypneic. X-ray and CT both confirm a right pleural effusion. He is not hypotensive or significantly hypoxic. No evidence of alcohol withdrawal at this time. Alcohol level is 391. He is not fever no obvious source. Suspect fluid overload with ascites and pleural effusion is causing tachycardia and increasing shortness breath. The patient declined having me do a paracentesis he would agree to in the morning. I did give patient 500 cc bolus before knowing he had a pleural effusion see if it helped his tachycardia. Abnormal LABS: INR 2.0, lactate 2.8, bilirubin 3.0, albumin 2.8 Patient is requiring oxygen he has significant cirrhosis with ascites and now pleural effusion. Declining to have a paracentesis this time. Persistent tachycardia likely secondary to fluid overload and hypoxia. Dr. Mercado accepts patient. Discharge Plan Departure Patient Disposition: Admitted As Inpatient Clinical Impression: Cirrhosis, Pleural effusion Admit Date/Time: 11/29/22 23:57 Admit Provider: Jonathan Mercado
--- NOTE | 2022-11-29 20:32 | DI.US.S_ITS ---
PROCEDURE: US ABDOMEN LIMITED INDICATIONS: CIRRHOSIS. PLEASE MARICRUZ FOR PARACENTESIS. TECHNIQUE: Real-time focused scanning was performed of the abdomen, with image documentation. COMPARISON: [facility], , US ABDOMEN LIMITED, 05/04/2022, 8:46. FINDINGS: The liver demonstrates normal size. The liver demonstrates a nodular contour. Within the left liver, there is a 1.3 cm septated cyst. Abnormal hepatofugal flow can be seen within the main portal vein, which is not dilated at 10 mm. No findings of gallstones or sludge are seen. The gallbladder wall is thickened, which is nonspecific in this patient with ascites. No specific pericholecystic fluid is seen. The sonographic Kline sign is negative. The biliary system and the pancreas are not well seen. The spleen is within normal limits for size. There is moderate to prominent ascites seen. A site for paracentesis is marked to the left of the midline within the lower abdomen. The overlying skin thickness is 1.5 cm. IMPRESSION: Cirrhotic liver with ascites. The left lower abdomen was marked for paracentesis. Dictated by: Joe Singh M.D. on 11/29/2022 at 21:26 Approved by: Joe Singh M.D. on 11/29/2022 at 21:28
--- NOTE | 2022-11-29 20:32 | DI.RAD.S_ITS ---
PROCEDURE: XR CHEST 1V INDICATIONS: short of breath TECHNIQUE: One view of the chest was acquired. COMPARISON: None. FINDINGS: Surgical changes and devices: None. Lungs and pleura: There is a moderately sized right-sided pleural effusion. Atelectasis versus infiltrate can be seen within the right mid lung. The left lung appears clear. No pneumothorax is seen on either side. Mediastinum: Mediastinal contours appear normal. Heart size is mildly to moderately enlarged. Bones and chest wall: No suspicious bony lesions. Overlying soft tissues appear unremarkable. IMPRESSION: A moderate right-sided pleural effusion is seen. Within the right lung, there is atelectasis versus infiltrate seen. [id number] cardiomegaly. Dictated by: Joe Singh M.D. on 11/29/2022 at 19:56 Approved by: Joe Singh M.D. on 11/29/2022 at 19:57
[2022-11-29] MEDS: SODIUM CHLORIDE 0.9% 500 ML 1000 ML IV (20:37)
--- NOTE | 2022-11-29 20:49 | DI.CT.S_ITS ---
PROCEDURE: CT CHEST ABD PEL W CON INDICATIONS: Hypoxia, cirrhosis TECHNIQUE: After the administration of oral and intravenous contrast, axial sections acquired from the supraclavicular neck to the pubic symphysis. Coronal and sagittal reformats were performed. For radiation dose reduction, the following was used: automated exposure control, adjustment of mA and/or kV according to patient size. COMPARISON: [facility], CR, XR CHEST 1V, 11/29/2022, 20:33. [facility], US, US ABDOMEN LIMITED, 05/04/2022, 8:46. FINDINGS: Image quality: Excellent. CHEST: Lower Neck: No enlarged lymph nodes. Thyroid: Within normal limits. Axillae: No enlarged lymph nodes. Chest Wall: Unremarkable. Lungs and Airways: Consolidative change can be seen at the right lung base, which is attributed to atelectasis. Pleura: There is a moderate to large right-sided pleural effusion. No left-sided pleural effusion is seen. No pneumothorax. Heart: Heart size is normal. No pericardial effusion. Moderate coronary artery calcification is seen. Thoracic Vessels: The aorta and pulmonary arteries demonstrate normal size. Mediastinum and Brittney: No enlarged lymph nodes. Esophagus: No wall thickening. There is a moderate hiatal hernia. ABDOMEN: Liver: An irregular, cirrhotic appearing liver can be seen. There is a nonenhancing water density cyst seen on the left, measuring 1 cm, as on series 2, image 46. Gallbladder: Distended, yet otherwise unremarkable. Biliary ducts: Unremarkable. Pancreas: Unremarkable. Spleen: Unremarkable. Adrenal Glands: Unremarkable. Kidneys and Ureters: Unremarkable. Stomach and Bowel: Moderate distal colonic diverticulosis is seen, without earl findings of active diverticulitis. No additional colonic abnormality is seen. No dilated loops of small bowel are seen. No significant gastric abnormality is seen. Peritoneum: There is moderate ascites. No free air. Ventral Wall: No hernia. Moderate body wall edema is seen. Abdominal Nodes: No retroperitoneal or mesenteric adenopathy by size criteria. Vessels: Aorta and inferior vena cava are normal in size. PELVIS: Pelvic Organs: Unremarkable. Bladder: Unremarkable. Pelvic Nodes: No enlarged lymph nodes. Miscellaneous: No inguinal hernias are seen. Bones: Focal degenerative change can be seen within the lower lumbar spine. Milder degenerative changes are seen elsewhere. IMPRESSION: Moderate to large right-sided pleural effusion, with associated atelectasis. Cirrhotic appearing liver, with a simple appearing cyst on the left. Moderate ascites. Additional findings: Moderate coronary artery calcification Moderate hiatal hernia Focal lower lumbar spine degenerative change Dictated by: Joe Singh M.D. on 11/29/2022 at 21:11 Approved by: Joe Singh M.D. on 11/29/2022 at 21:15
[2022-11-29 20:57] LABS: UR Morphine/Opiate cutoff 300 Negative (Negative); Ur Creatinine Normal (Normal); Ur Specific Gravity Normal (Normal); Urine Amphetamines Negative (Negative); Urine Barbiturates Negative (Negative); Urine Benzodiazepines Negative (Negative); Urine Cocaine Negative (Negative); Urine MDMA Negative (Negative); Urine Methadone Negative (Negative); Urine Methamphetamines Negative (Negative); Urine Oxycodone Negative (Negative); Urine Phencyclidine Negative (Negative); Urine Tetrahydrocannabinol Negative (Negative); Urine Tricyclic Antidepressant Negative (Negative); Urine pH Normal (Normal)
[2022-11-29 21:00] LABS: Lactate (Lactic Acid) 2.8 mmol/L (0.7-2.1)
[2022-11-29 21:07] LABS: Ethanol (ETOH) 391 mg/dL
[2022-11-29 22:38] LABS: Reflexed Lactate in 2 Hours Y
[2022-11-30] VITALS (82 sets, daily range): BP systolic 89–135; BP diastolic 51–90; PULSE 118–154; RESP 16–38; TEMP 36.4–36.9; O2SAT 89–100; BMI 22.9
--- NOTE | 2022-11-30 00:15 | DI.US.S_ITS ---
PROCEDURE: US chest soft tissue INDICATIONS: right pleural effusion TECHNIQUE: Ultrasound of the right chest was obtained COMPARISON: None. FINDINGS: Single image of the posterior right thorax shows a large pleural effusion IMPRESSION: Large right pleural effusion would be amendable to ultrasound-guided thoracentesis Approved by: Lloyd Butler M.D. on 11/30/2022 at 21:36
[2022-11-30] MEDS: SPIRONOLACTONE 25 MG TABLET 100 MG PO (00:41)
[2022-11-30] MEDS: FUROSEMIDE 40 MG TABLET PO ×2 (00:41→08:33)
[2022-11-30] MEDS: THIAMINE 500 MG in SODIUM CHLORIDE 0.9% 100 ML 420 MG IV (00:42)
--- NOTE | 2022-11-30 01:30 | PM.HP.1 ---
History of Present Illness History of Present Illness Date Patient Seen: 11/30/22 Time Patient Seen: 00:30 Chief complaint: Abd Pain, SOB Narrative: Mr. Bernstein is a 57M with PMH of alcohol abuse and previous EtOH seizures who presents with abdominal bloating, lower extremity edema, and shortness of breath. He drinks alcohol daily, he drinks approximately a pint of hard alcohol. He had last drink earlier today. He does not feel like he is withdrawing. He notes initial bloating and edema began about a month ago and has progressively worsened. He has no fevers or chills. In the ED workup was done, vitals notable for afebrile, heart rate 120s, respiratory rate 20s, blood pressure 120s/80s, sats 96% on 2L. Labs reviewed by me and notable for WBC 9.1, hgb 10.3, plts 185. Na 141, creatinine 0.70. INR 2.0. Bili 3.0. Albumin 2.8. EtOH level of 391. Urine with 1-5 WBCs, 0-1 bacteria. Urine drug screen negative. Chest xray reviewed by me and notable for right sided pleural effusion. CT chest/abdomen/pelvis reviewed by me and notable for right sided pleural effusion. He was ordered for IV fluids. He developed worsening shortness of breath and tachycardia. Lasix and spironolactone were ordered but he had little urine output. Paracentesis performed and 6L fluid were removed. He was admitted for further treatment. [facility] Medical History Anxiety and depression (~1989) Chicken pox (~1969) Substance abuse (~1987) Family History Mother Depression Father Parkinson's disease, Lewy body Social History household members: friend(s) Smoking Status: Current every day smoker alcohol intake: current Meds Home Medications and Allergies Home Medications Medication Instructions Recorded Confirmed Type No Known Home Medications 02/23/21 05/03/22 History topiramate 25 mg tablet 25 mg PO DAILY #30 tabs 05/05/22 Rx Allergies Allergy/AdvReac Type Severity Reaction Status Date / Time bee venom protein (honey bee) Allergy Severe Anaphylaxis Verified 05/03/22 19:24 Review of Systems Review of Systems Narrative: 14 systems reviewed and negative aside from what is noted in HPI Exam Vital Signs (past 8 hours): - 11/29/22 18:00 11/29/22 18:00 11/29/22 18:30 Pulse Rate 117 H Respiratory Rate 18 Blood Pressure 144/98 H 141/94 H Pulse Oximetry 97 Oxygen Delivery Method Oxygen Flow Rate 11/29/22 18:30 11/29/22 19:00 11/29/22 19:00 Pulse Rate 116 H 120 H Respiratory Rate 18 18 Blood Pressure 120/79 Pulse Oximetry 99 91 Oxygen Delivery Method Oxygen Flow Rate 11/29/22 19:30 11/29/22 19:30 11/29/22 20:00 Pulse Rate 118 H Respiratory Rate 22 Blood Pressure 125/84 123/65 Pulse Oximetry 93 Oxygen Delivery Method Oxygen Flow Rate 11/29/22 20:00 11/29/22 20:30 11/29/22 20:30 Pulse Rate 121 H 124 H Respiratory Rate 24 Blood Pressure 122/86 Pulse Oximetry 95 92 Oxygen Delivery Method Nasal Cannula Oxygen Flow Rate 2 11/29/22 21:00 11/29/22 21:30 11/29/22 22:00 Pulse Rate 121 H 120 H Respiratory Rate 33 H 28 H Blood Pressure 113/74 Pulse Oximetry 94 97 Oxygen Delivery Method Oxygen Flow Rate 11/29/22 22:30 11/29/22 23:00 11/29/22 23:14 Pulse Rate 120 H 125 H Respiratory Rate 17 31 H Blood Pressure 113/74 Pulse Oximetry 95 94 Oxygen Delivery Method Oxygen Flow Rate 11/29/22 23:14 11/29/22 23:30 11/29/22 23:31 Pulse Rate 124 H 124 H Respiratory Rate 24 24 Blood Pressure 121/75 Pulse Oximetry 95 94 Oxygen Delivery Method Oxygen Flow Rate 11/29/22 23:31 Pulse Rate 124 H Respiratory Rate 25 H Blood Pressure Pulse Oximetry 94 Oxygen Delivery Method Nasal Cannula Oxygen Flow Rate 2 Oxygen Delivery Method Nasal Cannula Oxygen Flow Rate 2 Narrative Exam Narrative: GEN: mild distress from abdominal discomfort CV: regular, tachycardic PULM: significantly diminished breath sounds on the right ABD: soft, distended, no rebound/guarding, diminished bowel sounds EXT: warm and well perfused with 1+ edema NEURO: awake, alert, oriented, with no focal deficits Objective Labs 11/30/22 02:00 11/30/22 02:00 Labs: Laboratory Results - last 24 hr 11/29/22 11/29/22 11/29/22 16:16 16:16 16:16 WBC 9.1 RBC 2.96 L Hgb 10.3 L Hct 30.0 L MCV 101.4 H MCH 34.8 H MCHC 34.3 RDW 14.0 Plt Count 185 Neut % (Auto) 60.7 Lymph % (Auto) 30.0 [place] % (Auto) 8.0 Eos % (Auto) 1.0 L Baso % (Auto) 0.3 Neut # (Auto) 5500 Lymph # (Auto) 2700 [place] # (Auto) 700 Eos # (Auto) 100 Baso # (Auto) 0 PT 22.9 H INR 2.0 H Sodium 141 Potassium 4.2 Chloride 107 Carbon Dioxide 24 BUN 8 L Creatinine 0.70 Estimated GFR > 60 BUN/Creatinine Ratio 11.4 Glucose 108 H Lactate Calcium 7.8 L Total Bilirubin 3.0 H AST 130 H ALT 24 Alkaline Phosphatase 182 H Total Protein 7.0 Albumin 2.8 L Globulin 4.2 H Albumin/Globulin Ratio 0.7 L Lipase 289 Ur Bilirubin Confirm Urine RBC Urine WBC Ur Squamous Epith Cells Calcium Oxalate Crystal Urine Bacteria Hyaline Casts Urine Mucus U Opiates 300ng/mL cut Ur Oxycodone Screen Urine Methadone Screen Ur Barbiturates Screen U Tricyclic Antidepress Ur Phencyclidine Scrn Ur Amphetamines Screen U Methamphetamines Scrn Ur MDMA Scrn (Ecstasy) U Benzodiazepines Scrn Urine Cocaine Screen U Marijuana (THC) Screen Ethyl Alcohol 11/29/22 11/29/22 11/29/22 16:16 16:16 18:51 WBC RBC Hgb Hct MCV MCH MCHC RDW Plt Count Neut % (Auto) Lymph % (Auto) [place] % (Auto) Eos % (Auto) Baso % (Auto) Neut # (Auto) Lymph # (Auto) [place] # (Auto) Eos # (Auto) Baso # (Auto) PT INR Sodium Potassium Chloride Carbon Dioxide BUN Creatinine Estimated GFR BUN/Creatinine Ratio Glucose Lactate 2.8 H Calcium Total Bilirubin AST ALT Alkaline Phosphatase Total Protein Albumin Globulin Albumin/Globulin Ratio Lipase Ur Bilirubin Confirm Positive H Urine RBC Urine WBC Ur Squamous Epith Cells Calcium Oxalate Crystal Urine Bacteria Hyaline Casts Urine Mucus U Opiates 300ng/mL cut Ur Oxycodone Screen Urine Methadone Screen Ur Barbiturates Screen U Tricyclic Antidepress Ur Phencyclidine Scrn Ur Amphetamines Screen U Methamphetamines Scrn Ur MDMA Scrn (Ecstasy) U Benzodiazepines Scrn Urine Cocaine Screen U Marijuana (THC) Screen Ethyl Alcohol 391 H 11/29/22 11/29/22 18:51 18:51 WBC RBC Hgb Hct MCV MCH MCHC RDW Plt Count Neut % (Auto) Lymph % (Auto) [place] % (Auto) Eos % (Auto) Baso % (Auto) Neut # (Auto) Lymph # (Auto) [place] # (Auto) Eos # (Auto) Baso # (Auto) PT INR Sodium Potassium Chloride Carbon Dioxide BUN Creatinine Estimated GFR BUN/Creatinine Ratio Glucose Lactate Calcium Total Bilirubin AST ALT Alkaline Phosphatase Total Protein Albumin Globulin Albumin/Globulin Ratio Lipase Ur Bilirubin Confirm Urine RBC 0-1/hpf Urine WBC 1-5/hpf Ur Squamous Epith Cells 1-5 /hpf Calcium Oxalate Crystal Few H Urine Bacteria Occasional (0-1) Hyaline Casts 10-30/lpf Urine Mucus 1+ H U Opiates 300ng/mL cut Negative Ur Oxycodone Screen Negative Urine Methadone Screen Negative Ur Barbiturates Screen Negative U Tricyclic Antidepress Negative Ur Phencyclidine Scrn Negative Ur Amphetamines Screen Negative U Methamphetamines Scrn Negative Ur MDMA Scrn (Ecstasy) Negative U Benzodiazepines Scrn Negative Urine Cocaine Screen Negative U Marijuana (THC) Screen Negative Ethyl Alcohol Assessment & Plan Assessment & Plan narrative: 1.Probable acute decompensated newly diagnosed cirrhosis with acute respiratory failure - decompensated with moderate ascites and right sided pleural effusion -secondary to alcohol abuse -patient noted to have cirrhotic appearing liver on imaging, with elevated INR, elevated bilirubin -MELD of 18, child duncan class C -albumin 2.8 -para performed with 6L clear yellow liquid -ordered for 50cc of 25% albumin -rule out SBP with cell count from peritoneal fluid -send peritoneal fluid labs and cultures -plan for thoracentesis, suspect this is secondary to transudative but will send labs to rule out infection -for now given ceftriaxone for possible SBP -follow up cultures -low salt diet, and 2L fluid restriction -started lasix 40mg daily, spironolactone 100mg daily 2. Alcohol abuse with previous withdrawal seizures -last drink within 24 hours -initial EtOH level of 391 -place on CIWA scale with benzos prn -ordered for MVI, thiamine, folate 3. Hiatal hernia -daily protonix I have discussed plan and obtained history from patient and friend at bedside. I have discussed plan of care with ED physician and bedside nurse. I have reviewed labs, imaging, and previous medical notes. CODE: DNR Proxy: Adela Bernsteinsister [facility] - Meds 'Current medications' to include all prescriptions, [id number] products, herbals, cannabis/cannabidiol products, and vitamin/mineral/dietary (nutritional) supplements. I have utilized all available resources to obtain, update, or review the patient?s current medications. [If Yes, STOP here]: Yes
[2022-11-30] MEDS: cefTRIAXone 2,000 MG in SODIUM CHLORIDE 0.9% 100 ML 200 MG IV (01:55)
[2022-11-30 02:15] LABS: Add Manual Diff / Slide Review NO; Basophils Absolute Auto 200 /uL (0-100); Basophils Percent Auto 2.9 % (0-2); Eosinophils Absolute Auto 100 /uL (0-450); Eosinophils Percent Auto 0.9 % (2-4); Hematocrit 32.6 % (41-53); Hemoglobin 11.2 g/dL (13.5-17.5); Lymphocytes Absolute Auto 2000 /uL (1100-4500); Lymphocytes Percent Auto 26.7 % (25-40); Mean Corpuscular HGB Conc 34.3 % (30-36); Mean Corpuscular Hemoglobin 34.8 PG (26-34); Mean Corpuscular Volume 101.5 fL (80-100); Monocytes Absolute Auto 500 /uL (0-900); Monocytes Percent Auto 6.6 % (3-14); Neutrophils Absolute Auto 4700 /uL (1500-7000); Neutrophils Percent Auto 62.9 % (50-75); Platelet Count 161 X10^3/uL (150-400); Red Blood Cell Count 3.21 X10^6/uL (4.5-5.9); Red Cell Distribution Width 14.1 % (11.6-14.8); White Blood Cell Count 7.5 X10^3/uL (4.5-11.0)
[2022-11-30 02:27] LABS: Prothrombin Time 23.4 SECONDS (10.1-12.7)
[2022-11-30 02:31] LABS: Alanine Aminotransferase 25 IU/L (<50); Albumin 2.9 g/dL (3.5-5.0); Albumin Globulin Ratio 0.7 (1.0-2.8); Alkaline Phosphatase 180 U/L (38-126); Aspartate Aminotransferase 142 IU/L (17-59); BUN Creatinine Ratio 9.2 (6-22); Bilirubin Total 3.3 mg/dL (0.2-1.3); Bilirubin Unconjugated 1.8 mg/dL (0.0-1.1); Blood Urea Nitrogen 7 mg/dL (9-20); Calcium 7.8 mg/dL (8.4-10.2); Carbon Dioxide 25 mmol/L (22-32); Chloride 106 mmol/L (98-107); Estimated Glomerular Filt Rate > 60 mL/min (>60); Globulin 4.4 g/dL (1.7-4.1); Glucose 106 mg/dL (70-100); HEMOLYSIS < 15 (0-50); Potassium 3.9 mmol/L (3.4-5.1); Sodium 142 mmol/L (137-145); Total Protein 7.3 g/dL (6.3-8.2)
--- NOTE | 2022-11-30 02:50 | PM.PROC.1 ---
Procedures Date/Time Date of procedure: 11/30/22 Time of procedure: 02:30 Paracentesis Time out performed: Yes Indication: Ascites Procedure: therapeutic paracentesis Location: infraumbilical Local anesthetic used: lidocaine 1% Amount of anesthesia used (ml): 10 Bedside ultrasound used: yes, Ascites confirmed and location marked Preparation: sterile prep and drape Amount of fluid obtained (ml): 6,000 Fluid: clear and sent to lab for analysis Size of needle used: 24 Post procedure exam: awake, alert and normal BP Patient tolerated procedure: well and no complications Complications: none
[2022-11-30 02:58] LABS: Body Fluid Tot Nucleated Cells 56 /uL
[2022-11-30 03:08] LABS: Body Fluid Red Blood Cells 517 /uL
[2022-11-30 03:16] LABS: Body Fluid Color YELLOW
[2022-11-30 03:17] LABS: Body Fluid Appearance SLIGHTLY CLOUDY; Body Fluid Clotted? NO CLOTS PRESENT
[2022-11-30 03:32] LABS: Mononuclear WBC Body Fluid 95 %; Polynuclear WBC Body Fluid 5 %
[2022-11-30 04:10] LABS: Reflexed Lactate in 2 Hours Y
[2022-11-30] MEDS: LIDOCAINE 1% 20 ML INJ (04:21)
[2022-11-30] MEDS: ALBUMIN HUMAN 50 GM/200 ML VIAL IV (04:21)
[2022-11-30 04:45] LABS: Lactate 2HR (Lactic Acid Rflx) 3.3 mmol/L (0.7-2.1)
[2022-11-30] MEDS: MULTIVITAMIN 1 TABLET 1 TAB PO (08:32)
[2022-11-30] MEDS: THIAMINE 100 MG TABLET PO (08:32)
[2022-11-30] MEDS: SPIRONOLACTONE 25 MG TABLET 50 MG PO (08:33)
[2022-11-30] MEDS: ENOXAPARIN 40 MG/0.4 ML SYRINGE SUBCUT (08:34)
[2022-11-30] MEDS: PANTOPRAZOLE DR 40 MG TABLET PO (08:46)
[2022-11-30 09:28] LABS: Hematocrit 27.7 % (41-53); Hemoglobin 9.7 g/dL (13.5-17.5); Mean Corpuscular HGB Conc 35.1 % (30-36); Mean Corpuscular Hemoglobin 35.3 PG (26-34); Mean Corpuscular Volume 100.6 fL (80-100); Platelet Count 116 X10^3/uL (150-400); Red Blood Cell Count 2.76 X10^6/uL (4.5-5.9); Red Cell Distribution Width 14.2 % (11.6-14.8); White Blood Cell Count 6.1 X10^3/uL (4.5-11.0)
[2022-11-30] MEDS: FOLIC ACID 1 MG TABLET PO (09:28)
[2022-11-30 09:35] LABS: Alanine Aminotransferase 21 IU/L (<50); Albumin 3.3 g/dL (3.5-5.0); Albumin Globulin Ratio 0.9 (1.0-2.8); Alkaline Phosphatase 160 U/L (38-126); Aspartate Aminotransferase 118 IU/L (17-59); BUN Creatinine Ratio 6.8 (6-22); Bilirubin Total 2.8 mg/dL (0.2-1.3); Blood Urea Nitrogen 5 mg/dL (9-20); Calcium 7.9 mg/dL (8.4-10.2); Carbon Dioxide 31 mmol/L (22-32); Chloride 99 mmol/L (98-107); Estimated Glomerular Filt Rate > 60 mL/min (>60); Globulin 3.7 g/dL (1.7-4.1); Glucose 96 mg/dL (70-100); HEMOLYSIS < 15 (0-50); Lactate (Lactic Acid) 3.2 mmol/L (0.7-2.1); Potassium 3.6 mmol/L (3.4-5.1); Sodium 140 mmol/L (137-145)
--- NOTE | 2022-11-30 10:24 | PC.NURSE ---
[facility] 4 @ [id number].
[2022-11-30 11:20] LABS: Reflexed Lactate in 2 Hours Y
[2022-11-30 11:51] LABS: Lactate 2HR (Lactic Acid Rflx) 3.6 mmol/L (0.7-2.1)
--- NOTE | 2022-11-30 12:30 | PM.CN.EICU ---
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 underwent paracentesis, and eleated etoh level on presentaation. Pts pressure has been borderline today, and also there is concern for withdrawal. He was moved to the ICU with a plan to aslo perform a throacentesis. [facility] Medical History Anxiety and depression (~1989) Chicken pox (~1969) Substance abuse (~1987) Family History Mother Depression Father Parkinson's disease, Lewy body Social History household members: friend(s) Smoking Status: Current every day smoker alcohol intake: current Current Medications Current Medications Medications: Home Medications No Known Home Medications 02/23/21 [History Confirmed 05/03/22] topiramate 25 mg tablet 25 mg PO DAILY #30 tabs 05/05/22 [Rx] Visit Medications (administered) Generic Name Dose Route Start Last Admin Trade Name Freq PRN Reason Stop Dose Admin Enoxaparin Sodium 40 mg 11/30/22 09:00 11/30/22 08:34 Enoxaparin 40 Mg/0.4 Ml Syringe SUBCUT 40 mg DAILY MELLISSA Administration Folic Acid 1 mg 11/30/22 09:00 11/30/22 09:28 Folic Acid 1 Mg Tablet PO 1 mg DAILY MELLISSA Administration Furosemide 40 mg 11/30/22 09:00 11/30/22 08:33 Furosemide 40 Mg Tablet PO 40 mg DAILY MELLISSA Administration Multivitamins 1 tab 11/30/22 09:00 11/30/22 08:32 Multivitamin 1 Tablet PO 1 tab DAILY MELLISSA Administration Pantoprazole Sodium 40 mg 11/30/22 07:00 11/30/22 08:[address] 40 Mg Tablet PO 40 mg 0700 MELLISSA Administration Spironolactone 50 mg 11/30/22 09:00 11/30/22 08:33 Spironolactone 25 Mg Tablet PO 50 mg DAILY MELLISSA Administration Thiamine HCl 100 mg 11/30/22 09:00 11/30/22 08:32 Thiamine 100 Mg Tablet PO 100 mg DAILY MELLISSA Administration Exam Vital Signs (past 8 hours): - 11/30/22 04:32 11/30/22 04:45 11/30/22 04:45 Temperature Pulse Rate 137 H 132 H Respiratory Rate 21 20 Blood Pressure 121/75 Pulse Oximetry 93 90 L Oxygen Delivery Method Oxygen Flow Rate 11/30/22 05:00 11/30/22 05:00 11/30/22 05:15 Temperature Pulse Rate 134 H Respiratory Rate 21 Blood Pressure 106/60 109/68 Pulse Oximetry 92 Oxygen Delivery Method Oxygen Flow Rate 11/30/22 05:15 11/30/22 05:30 11/30/22 05:30 Temperature Pulse Rate 140 H 132 H Respiratory Rate 34 H 19 Blood Pressure 107/66 Pulse Oximetry 91 93 Oxygen Delivery Method Oxygen Flow Rate 11/30/22 05:45 11/30/22 05:50 11/30/22 05:50 Temperature Pulse Rate 142 H 141 H Respiratory Rate 30 H 20 Blood Pressure 117/75 Pulse Oximetry 95 89 L Oxygen Delivery Method Room Air Oxygen Flow Rate 11/30/22 06:00 11/30/22 06:00 11/30/22 06:15 Temperature Pulse Rate 129 H 132 H Respiratory Rate 18 18 Blood Pressure 128/87 Pulse Oximetry 96 96 Oxygen Delivery Method Nasal Cannula Oxygen Flow Rate 2 11/30/22 06:15 11/30/22 06:30 11/30/22 06:30 Temperature Pulse Rate 137 H Respiratory Rate 30 H Blood Pressure 131/89 118/74 Pulse Oximetry 96 Oxygen Delivery Method Oxygen Flow Rate 11/30/22 06:45 11/30/22 06:45 11/30/22 07:00 Temperature Pulse Rate 127 H Respiratory Rate 19 Blood Pressure 124/82 131/90 Pulse Oximetry 96 Oxygen Delivery Method Oxygen Flow Rate 11/30/22 07:00 11/30/22 07:15 11/30/22 07:15 Temperature Pulse Rate 129 H 133 H Respiratory Rate 23 22 Blood Pressure 102/66 Pulse Oximetry 96 96 Oxygen Delivery Method Oxygen Flow Rate 11/30/22 07:30 11/30/22 07:30 11/30/22 07:45 Temperature Pulse Rate 127 H Respiratory Rate 16 Blood Pressure 101/64 105/66 Pulse Oximetry 97 Oxygen Delivery Method Oxygen Flow Rate 11/30/22 07:45 11/30/22 08:00 11/30/22 08:00 Temperature Pulse Rate 139 H 130 H Respiratory Rate 38 H 23 Blood Pressure 126/74 Pulse Oximetry 93 94 Oxygen Delivery Method Oxygen Flow Rate 11/30/22 08:15 11/30/22 08:15 11/30/22 08:30 Temperature Pulse Rate 134 H Respiratory Rate 26 H Blood Pressure 113/67 109/70 Pulse Oximetry 90 L Oxygen Delivery Method Oxygen Flow Rate 11/30/22 08:30 11/30/22 08:45 11/30/22 08:45 Temperature Pulse Rate 130 H 136 H Respiratory Rate 25 H 28 H Blood Pressure 102/62 Pulse Oximetry 95 92 Oxygen Delivery Method Oxygen Flow Rate 11/30/22 09:00 11/30/22 09:00 11/30/22 09:15 Temperature Pulse Rate 137 H Respiratory Rate 24 Blood Pressure 102/57 L 94/51 L Pulse Oximetry 92 Oxygen Delivery Method Nasal Cannula Oxygen Flow Rate 11/30/22 09:15 11/30/22 09:30 11/30/22 09:30 Temperature Pulse Rate 135 H 131 H Respiratory Rate 19 18 Blood Pressure 103/57 L Pulse Oximetry 92 95 Oxygen Delivery Method Nasal Cannula Nasal Cannula Oxygen Flow Rate 2 2 11/30/22 09:45 11/30/22 09:45 11/30/22 10:00 Temperature Pulse Rate 154 H 140 H Respiratory Rate 25 H 22 Blood Pressure 107/62 Pulse Oximetry 94 96 Oxygen Delivery Method Nasal Cannula Nasal Cannula Oxygen Flow Rate 2 2 11/30/22 10:06 11/30/22 10:06 11/30/22 10:15 Temperature Pulse Rate 140 H Respiratory Rate 24 Blood Pressure 108/60 112/64 Pulse Oximetry 96 Oxygen Delivery Method Nasal Cannula Oxygen Flow Rate 2 11/30/22 10:15 11/30/22 11:00 11/30/22 05:36 Temperature Pulse Rate 141 H Respiratory Rate 22 Blood Pressure Pulse Oximetry 96 92 Oxygen Delivery Method Nasal Cannula Blow By Room Air Nasal Cannula Oxygen Flow Rate 2 2 11/30/22 10:30 11/30/22 10:31 11/30/22 10:31 Temperature Pulse Rate 149 H 147 H Respiratory Rate 33 H 25 H Blood Pressure 115/79 Pulse Oximetry 96 95 Oxygen Delivery Method Oxygen Flow Rate 11/30/22 11:10 11/30/22 11:15 11/30/22 11:30 Temperature Pulse Rate 140 H 140 H 134 H Respiratory Rate 28 H 27 H Blood Pressure Pulse Oximetry 93 95 94 Oxygen Delivery Method Oxygen Flow Rate 11/30/22 11:45 11/30/22 10:20 Temperature 97.6 F Pulse Rate 134 H Respiratory Rate 24 Blood Pressure Pulse Oximetry 92 Oxygen Delivery Method Oxygen Flow Rate Oxygen Delivery Method Room Air Oxygen Flow Rate 2 Narrative Exam Narrative: surrogate for exam is primary team Objective Labs 11/30/22 09:16 11/30/22 09:16 Labs: Laboratory Results - last 24 hr 11/29/22 11/29/22 11/29/22 16:16 16:16 16:16 WBC 9.1 RBC 2.96 L Hgb 10.3 L Hct 30.0 L MCV 101.4 H MCH 34.8 H MCHC 34.3 RDW 14.0 Plt Count 185 Neut % (Auto) 60.7 Lymph % (Auto) 30.0 [place] % (Auto) 8.0 Eos % (Auto) 1.0 L Baso % (Auto) 0.3 Neut # (Auto) 5500 Lymph # (Auto) 2700 [place] # (Auto) 700 Eos # (Auto) 100 Baso # (Auto) 0 PT 22.9 H INR 2.0 H Sodium 141 Potassium 4.2 Chloride 107 Carbon Dioxide 24 BUN 8 L Creatinine 0.70 Estimated GFR > 60 BUN/Creatinine Ratio 11.4 Glucose 108 H Lactate Calcium 7.8 L Total Bilirubin 3.0 H Conjugated Bilirubin Unconjugated Bilirubin AST 130 H ALT 24 Alkaline Phosphatase 182 H Total Protein 7.0 Albumin 2.8 L Globulin 4.2 H Albumin/Globulin Ratio 0.7 L Lipase 289 Ur Bilirubin Confirm Urine RBC Urine WBC Ur Squamous Epith Cells Calcium Oxalate Crystal Urine Bacteria Hyaline Casts Urine Mucus Fluid Color Fluid Appearance Fluid RBC Fld Tot Nucleated Cell Fluid Polynuclear WBCs Fluid Mononuclear WBCs Fluid Eosinophils Fluid Other Cells Body Fluid Clot U Opiates 300ng/mL cut Ur Oxycodone Screen Urine Methadone Screen Ur Barbiturates Screen U Tricyclic Antidepress Ur Phencyclidine Scrn Ur Amphetamines Screen U Methamphetamines Scrn Ur MDMA Scrn (Ecstasy) U Benzodiazepines Scrn Urine Cocaine Screen U Marijuana (THC) Screen Ethyl Alcohol 11/29/22 11/29/22 11/29/22 16:16 16:16 18:51 WBC RBC Hgb Hct MCV MCH MCHC RDW Plt Count Neut % (Auto) Lymph % (Auto) [place] % (Auto) Eos % (Auto) Baso % (Auto) Neut # (Auto) Lymph # (Auto) [place] # (Auto) Eos # (Auto) Baso # (Auto) PT INR Sodium Potassium Chloride Carbon Dioxide BUN Creatinine Estimated GFR BUN/Creatinine Ratio Glucose Lactate 2.8 H Calcium Total Bilirubin Conjugated Bilirubin Unconjugated Bilirubin AST ALT Alkaline Phosphatase Total Protein Albumin Globulin Albumin/Globulin Ratio Lipase Ur Bilirubin Confirm Positive H Urine RBC Urine WBC Ur Squamous Epith Cells Calcium Oxalate Crystal Urine Bacteria Hyaline Casts Urine Mucus Fluid Color Fluid Appearance Fluid RBC Fld Tot Nucleated Cell Fluid Polynuclear WBCs Fluid Mononuclear WBCs Fluid Eosinophils Fluid Other Cells Body Fluid Clot U Opiates 300ng/mL cut Ur Oxycodone Screen Urine Methadone Screen Ur Barbiturates Screen U Tricyclic Antidepress Ur Phencyclidine Scrn Ur Amphetamines Screen U Methamphetamines Scrn Ur MDMA Scrn (Ecstasy) U Benzodiazepines Scrn Urine Cocaine Screen U Marijuana (THC) Screen Ethyl Alcohol 391 H 11/29/22 11/29/22 11/30/22 18:51 18:51 02:00 WBC 7.5 RBC 3.21 L Hgb 11.2 L Hct 32.6 L MCV 101.5 H MCH 34.8 H MCHC 34.3 RDW 14.1 Plt Count 161 Neut % (Auto) 62.9 Lymph % (Auto) 26.7 [place] % (Auto) 6.6 Eos % (Auto) 0.9 L Baso % (Auto) 2.9 H Neut # (Auto) 4700 Lymph # (Auto) 2000 [place] # (Auto) 500 Eos # (Auto) 100 Baso # (Auto) 200 H PT INR Sodium Potassium Chloride Carbon Dioxide BUN Creatinine Estimated GFR BUN/Creatinine Ratio Glucose Lactate Calcium Total Bilirubin Conjugated Bilirubin Unconjugated Bilirubin AST ALT Alkaline Phosphatase Total Protein Albumin Globulin Albumin/Globulin Ratio Lipase Ur Bilirubin Confirm Urine RBC 0-1/hpf Urine WBC 1-5/hpf Ur Squamous Epith Cells 1-5 /hpf Calcium Oxalate Crystal Few H Urine Bacteria Occasional (0-1) Hyaline Casts 10-30/lpf Urine Mucus 1+ H Fluid Color Fluid Appearance Fluid RBC Fld Tot Nucleated Cell Fluid Polynuclear WBCs Fluid Mononuclear WBCs Fluid Eosinophils Fluid Other Cells Body Fluid Clot U Opiates 300ng/mL cut Negative Ur Oxycodone Screen Negative Urine Methadone Screen Negative Ur Barbiturates Screen Negative U Tricyclic Antidepress Negative Ur Phencyclidine Scrn Negative Ur Amphetamines Screen Negative U Methamphetamines Scrn Negative Ur MDMA Scrn (Ecstasy) Negative U Benzodiazepines Scrn Negative Urine Cocaine Screen Negative U Marijuana (THC) Screen Negative Ethyl Alcohol 11/30/22 11/30/22 11/30/22 02:00 02:00 02:00 WBC RBC Hgb Hct MCV MCH MCHC RDW Plt Count Neut % (Auto) Lymph % (Auto) [place] % (Auto) Eos % (Auto) Baso % (Auto) Neut # (Auto) Lymph # (Auto) [place] # (Auto) Eos # (Auto) Baso # (Auto) PT 23.4 H INR 2.0 H Sodium 142 Potassium 3.9 Chloride 106 Carbon Dioxide 25 BUN 7 L Creatinine 0.76 Estimated GFR > 60 BUN/Creatinine Ratio 9.2 Glucose 106 H Lactate 3.0 H Calcium 7.8 L Total Bilirubin 3.3 H Conjugated Bilirubin 0.0 Unconjugated Bilirubin 1.8 H AST 142 H ALT 25 Alkaline Phosphatase 180 H Total Protein 7.3 Albumin 2.9 L Globulin 4.4 H Albumin/Globulin Ratio 0.7 L Lipase Ur Bilirubin Confirm Urine RBC Urine WBC Ur Squamous Epith Cells Calcium Oxalate Crystal Urine Bacteria Hyaline Casts Urine Mucus Fluid Color Fluid Appearance Fluid RBC Fld Tot Nucleated Cell Fluid Polynuclear WBCs Fluid Mononuclear WBCs Fluid Eosinophils Fluid Other Cells Body Fluid Clot U Opiates 300ng/mL cut Ur Oxycodone Screen Urine Methadone Screen Ur Barbiturates Screen U Tricyclic Antidepress Ur Phencyclidine Scrn Ur Amphetamines Screen U Methamphetamines Scrn Ur MDMA Scrn (Ecstasy) U Benzodiazepines Scrn Urine Cocaine Screen U Marijuana (THC) Screen Ethyl Alcohol 11/30/22 11/30/22 11/30/22 02:40 04:30 09:16 WBC 6.1 RBC 2.76 L Hgb 9.7 L Hct 27.7 L MCV 100.6 H MCH 35.3 H MCHC 35.1 RDW 14.2 Plt Count 116 L Neut % (Auto) Lymph % (Auto) [place] % (Auto) Eos % (Auto) Baso % (Auto) Neut # (Auto) Lymph # (Auto) [place] # (Auto) Eos # (Auto) Baso # (Auto) PT INR Sodium Potassium Chloride Carbon Dioxide BUN Creatinine Estimated GFR BUN/Creatinine Ratio Glucose Lactate 3.3 H Calcium Total Bilirubin Conjugated Bilirubin Unconjugated Bilirubin AST ALT Alkaline Phosphatase Total Protein Albumin Globulin Albumin/Globulin Ratio Lipase Ur Bilirubin Confirm Urine RBC Urine WBC Ur Squamous Epith Cells Calcium Oxalate Crystal Urine Bacteria Hyaline Casts Urine Mucus Fluid Color Yellow Fluid Appearance Slightly cloudy Fluid RBC 517 Fld Tot Nucleated Cell 56 Fluid Polynuclear WBCs 5 Fluid Mononuclear WBCs 95 Fluid Eosinophils Not Reportable Fluid Other Cells Not Reportable Body Fluid Clot No clots present U Opiates 300ng/mL cut Ur Oxycodone Screen Urine Methadone Screen Ur Barbiturates Screen U Tricyclic Antidepress Ur Phencyclidine Scrn Ur Amphetamines Screen U Methamphetamines Scrn Ur MDMA Scrn (Ecstasy) U Benzodiazepines Scrn Urine Cocaine Screen U Marijuana (THC) Screen Ethyl Alcohol 11/30/22 11/30/22 11/30/22 09:16 09:16 11:33 WBC RBC Hgb Hct MCV MCH MCHC RDW Plt Count Neut % (Auto) Lymph % (Auto) [place] % (Auto) Eos % (Auto) Baso % (Auto) Neut # (Auto) Lymph # (Auto) [place] # (Auto) Eos # (Auto) Baso # (Auto) PT INR Sodium 140 Potassium 3.6 Chloride 99 Carbon Dioxide 31 BUN 5 L Creatinine 0.73 Estimated GFR > 60 BUN/Creatinine Ratio 6.8 Glucose 96 Lactate 3.2 H 3.6 H Calcium 7.9 L Total Bilirubin 2.8 H Conjugated Bilirubin Unconjugated Bilirubin AST 118 H ALT 21 Alkaline Phosphatase 160 H Total Protein 7.0 Albumin 3.3 L Globulin 3.7 Albumin/Globulin Ratio 0.9 L Lipase Ur Bilirubin Confirm Urine RBC Urine WBC Ur Squamous Epith Cells Calcium Oxalate Crystal Urine Bacteria Hyaline Casts Urine Mucus Fluid Color Fluid Appearance Fluid RBC Fld Tot Nucleated Cell Fluid Polynuclear WBCs Fluid Mononuclear WBCs Fluid Eosinophils Fluid Other Cells Body Fluid Clot U Opiates 300ng/mL cut Ur Oxycodone Screen Urine Methadone Screen Ur Barbiturates Screen U Tricyclic Antidepress Ur Phencyclidine Scrn Ur Amphetamines Screen U Methamphetamines Scrn Ur MDMA Scrn (Ecstasy) U Benzodiazepines Scrn Urine Cocaine Screen U Marijuana (THC) Screen Ethyl Alcohol Assessment & Plan Assessment and plan (1) Pleural effusion: Status: Acute (2) Cirrhosis: Status: Acute (3) Alcohol abuse: Status: Acute Plan CIWA protocol supplemental o2 as needed map goal 60-65 TTE thoracentesis today ( likely hepatic hydrothorax) f/u fluid analysi and cx/micro trend bmp goal negative balance albumin boluses Time Spent With Patient Time with patient: 30 to 49 minutes with 50% spent counseling/coordinating care
[2022-11-30 12:37] LABS: MRSA (Nasal) PCR Not Detected (Not Detect)
--- NOTE | 2022-11-30 12:49 | DI.ECHO.S_ITS ---
[facility] +---------+ : : [address] : [address] [place] : : : : [id number] : : : : Phone: [phone]+ Echocardiogram Report + + :Name: KATIE MARTIN Study Date: 12/01/2022 Height: 66 in : :[facility] ReadingLocation: Weight: 142 lb : : Gender: Male BSA: 1.7 m2 : :: 1965 Age: 57 yrs BP: 100/55 mmHg: :Reason For Study: Pleural Effusion : :Ordering Physician: Bhargav, : :Kayley Performed By: Elisabet Milligan : :Referring: KAYLEY BAIRES A : + + Interpretation Summary Sinus tachycardia with heart rate 110-112 bpm. Normal LV size and mildly increased wall thickness. Normal wall motion and LV systolic function. Ejection fraction is 65-70%. Normal chamber sizes and no significant valvular abnormalities. Trivial pericardial effusion and moderate left pleural effusion. No prior study available for comparison. Procedure: A two-dimensional transthoracic echocardiogram with color flow and Doppler was performed. The study quality was technically adequate. There is no prior echocardiogram noted for this patient. The patient was in a tachycardic rhythm during the exam. Left Ventricle: The left ventricle is normal in size. The ejection fraction is estimated to be 65-70%. Diastolic function could not be accurately assessed due to tachycardia. Right Ventricle: The right ventricle is normal size. The right ventricular systolic function is normal. Atria: The left atrial size is normal. Right atrial size is normal. There is no Doppler evidence for an interatrial shunt. Mitral Valve: The mitral valve is normal. There is no mitral valve stenosis. There is trace mitral regurgitation. Aortic Valve: The aortic valve is trileaflet. The aortic valve opens well. There is no aortic valve stenosis. No aortic regurgitation is present. Tricuspid Valve: The tricuspid valve is normal. There is no tricuspid stenosis. There is trace tricuspid regurgitation. The right ventricular systolic pressure is estimated to be at least 33 mmHg based on an estimated right atrial pressure of 8 mm Hg. Pulmonic Valve: The pulmonic valve leaflets are thin and pliable; valve motion is normal. There is no pulmonic valvular stenosis. There is no pulmonic valvular regurgitation. Great Vessels: The aortic root is normal size. The ascending aorta is normal in size. The pulmonary artery is normal size. The IVC is of normal diameter and collapses less than 50% with a sniff. This suggests a right atrial pressure of 8 mm Hg. Pericardium/ Pleura There is a trivial pericardial effusion noted. There is a moderately large left-sided pleural effusion. MMode/2D Measurements & Calculations LVIDd: 3.4 cm LVOT diam: 2.0 cm LVIDs: 1.4 cm Ao root diam: 2.9 cm FS: 58.8 % asc Aorta Diam: 2.9 cm IVSd: 1.3 cm LVPWd: 1.1 cm LV laureano. diameter/BSA (cm/m^2): 2.0 LV sys. diameter/BSA (cm/m^2): 0.81 LA A2 area: 16.5 cm2 RA long axis: 4.4 cm LA A4 area: 17.5 cm2 RA area: 11.2 cm2 LA length (vol): 4.7 cm RA vol: 24.2 ml LA vol: 52.4 ml RA : 14.0 ml/m2 LA vol index: 30.3 ml/m2 RVD1 (basal): 3.3 cm LVLs ap4: 5.3 cm LVLd ap2: 6.8 cm TAPSE_phl: 2.3 cm LVLs ap2: 5.8 cm Doppler Measurements & Calculations Ao V2 max: 190.0 cm/sec LVOT Max Bari: 151.0 cm/sec Ao V2 mean: 143.0 cm/sec LV V1 max P.1 mmHg Ao max P.0 mmHg LV V1 VTI: 24.6 cm Ao mean P.0 mmHg AMY(I,D): 2.2 cm2 Ao V2 VTI: 35.8 cm AMY(V,D): 2.5 cm2 sev ratio: 0.69 AMY indexed to BSA (cm^2/m^2): 1.2 Lat Peak E' Bari: 10.6 cm/sec TR max bari: 251.0 cm/sec TR max P.2 mmHg PA V2 max: 108.0 cm/sec PA V2 mean: 74.5 cm/sec PA mean P.0 mmHg PA pr(Accel): 42.1 mmHg SV(LVOT): 77.3 ml AV VR_phl: 0.79 AMY(VTI)/BSA_phl: 1.3 Electronically signed by: Mckayla Ordaz M.D. on Reading Physician:12/01/2022 02:01 PM
--- NOTE | 2022-11-30 13:21 | PC.ADMIT ---
Addendum entered by Juju Reaves R.N. 11/30/22 18:22: 1822 Pt BP 89/63 MAP 71 HR 129, updated Dr Durant, no new orders at this time, will continue to monitor Addendum entered by Juju Reaves R.N. 11/30/22 17:31: 1731 Entered pt room due to call light being pressed, found pt and partner in bed together, explained to both that only the pt could be in the bed. They understood and , will continue to monitor. Original Note: [email or web address] Admission Note: Pt arrived via gurney from ED, was able to slide from gurney to bed, connected to monitoring devices, seizure pads and bed alarm set. Oriented to room and call light, pt placed in gown but refusing to remove his pants. Bed low and locked, call light within place, will continue to treat and monitor as ordered The patient,Lane Bernstein,57 y/o, was given written information regarding hospital policies, unit procedures and contact persons. Patient's smoking status: Current every day smoker. Vital Signs - 8 hr 11/30/22 05:30 11/30/22 05:30 11/30/22 05:45 Temperature Pulse Rate 132 H 142 H Respiratory Rate 19 30 H Blood Pressure 107/66 Pulse Oximetry 93 95 Oxygen Delivery Method Oxygen Flow Rate 11/30/22 05:50 11/30/22 05:50 11/30/22 06:00 Temperature Pulse Rate 141 H Respiratory Rate 20 Blood Pressure 117/75 128/87 Pulse Oximetry 89 L Oxygen Delivery Method Room Air Oxygen Flow Rate 11/30/22 06:00 11/30/22 06:15 11/30/22 06:15 Temperature Pulse Rate 129 H 132 H Respiratory Rate 18 18 Blood Pressure 131/89 Pulse Oximetry 96 96 Oxygen Delivery Method Nasal Cannula Oxygen Flow Rate 2 11/30/22 06:30 11/30/22 06:30 11/30/22 06:45 Temperature Pulse Rate 137 H Respiratory Rate 30 H Blood Pressure 118/74 124/82 Pulse Oximetry 96 Oxygen Delivery Method Oxygen Flow Rate 11/30/22 06:45 11/30/22 07:00 11/30/22 07:00 Temperature Pulse Rate 127 H 129 H Respiratory Rate 19 23 Blood Pressure 131/90 Pulse Oximetry 96 96 Oxygen Delivery Method Oxygen Flow Rate 11/30/22 07:15 11/30/22 07:15 11/30/22 07:30 Temperature Pulse Rate 133 H Respiratory Rate 22 Blood Pressure 102/66 101/64 Pulse Oximetry 96 Oxygen Delivery Method Oxygen Flow Rate 11/30/22 07:30 11/30/22 07:45 11/30/22 07:45 Temperature Pulse Rate 127 H 139 H Respiratory Rate 16 38 H Blood Pressure 105/66 Pulse Oximetry 97 93 Oxygen Delivery Method Oxygen Flow Rate 11/30/22 08:00 11/30/22 08:00 11/30/22 08:15 Temperature Pulse Rate 130 H Respiratory Rate 23 Blood Pressure 126/74 113/67 Pulse Oximetry 94 Oxygen Delivery Method Oxygen Flow Rate 11/30/22 08:15 11/30/22 08:30 11/30/22 08:30 Temperature Pulse Rate 134 H 130 H Respiratory Rate 26 H 25 H Blood Pressure 109/70 Pulse Oximetry 90 L 95 Oxygen Delivery Method Oxygen Flow Rate 11/30/22 08:45 11/30/22 08:45 11/30/22 09:00 Temperature Pulse Rate 136 H Respiratory Rate 28 H Blood Pressure 102/62 102/57 L Pulse Oximetry 92 Oxygen Delivery Method Oxygen Flow Rate 11/30/22 09:00 11/30/22 09:15 11/30/22 09:15 Temperature Pulse Rate 137 H 135 H Respiratory Rate 24 19 Blood Pressure 94/51 L Pulse Oximetry 92 92 Oxygen Delivery Method Nasal Cannula Nasal Cannula Oxygen Flow Rate 2 11/30/22 09:30 11/30/22 09:30 11/30/22 09:45 Temperature Pulse Rate 131 H Respiratory Rate 18 Blood Pressure 103/57 L 107/62 Pulse Oximetry 95 Oxygen Delivery Method Nasal Cannula Oxygen Flow Rate 2 11/30/22 09:45 11/30/22 10:00 11/30/22 10:06 Temperature Pulse Rate 154 H 140 H Respiratory Rate 25 H 22 Blood Pressure 108/60 Pulse Oximetry 94 96 Oxygen Delivery Method Nasal Cannula Nasal Cannula Oxygen Flow Rate 2 2 11/30/22 10:06 11/30/22 10:15 11/30/22 10:15 Temperature Pulse Rate 140 H 141 H Respiratory Rate 24 22 Blood Pressure 112/64 Pulse Oximetry 96 96 Oxygen Delivery Method Nasal Cannula Nasal Cannula Blow By Oxygen Flow Rate 2 2 11/30/22 11:00 11/30/22 05:36 11/30/22 10:30 Temperature Pulse Rate 149 H Respiratory Rate 33 H Blood Pressure Pulse Oximetry 92 96 Oxygen Delivery Method Room Air Nasal Cannula Oxygen Flow Rate 2 11/30/22 10:31 11/30/22 10:31 11/30/22 11:10 Temperature Pulse Rate 147 H 140 H Respiratory Rate 25 H Blood Pressure 115/79 Pulse Oximetry 95 93 Oxygen Delivery Method Oxygen Flow Rate 11/30/22 11:15 11/30/22 11:30 11/30/22 11:45 Temperature Pulse Rate 140 H 134 H 134 H Respiratory Rate 28 H 27 H 24 Blood Pressure Pulse Oximetry 95 94 92 Oxygen Delivery Method Oxygen Flow Rate 11/30/22 10:20 11/30/22 13:00 Temperature 97.6 F Pulse Rate Respiratory Rate Blood Pressure Pulse Oximetry Oxygen Delivery Method Nasal Cannula Oxygen Flow Rate
[2022-11-30] MEDS: ALBUMIN HUMAN 25 GM/100 ML VIAL IV (20:05)
--- NOTE | 2022-11-30 20:48 | PM.ICURNDS ---
- :: This patient was seen via real time interactive two-way audiovisual telecommunication. Note: 57 y.o. male w/ EtOH cirrhosis admitted for fluid overload. Sleeping on camera; receiving 25% albumin and thoracentesis is tentatively planned for tonight. Spoke w/ RN; continue plan as per bedside team.
[2022-12-01] VITALS (66 sets, daily range): BP systolic 70–104; BP diastolic 43–60; PULSE 109–139; RESP 15–37; TEMP 36.7–36.8; O2SAT 87–96
--- NOTE | 2022-12-01 04:47 | PC.NURSE ---
Addendum entered by Sima Biswas R.N. 12/01/22 06:39: Thorecentesis done at bedside with who removed 1.5L from right lung. Sample sent to lab. Hypotension post thorecentesis. Another 25% Albumin ordered and running. Pt resting comfortably in bed. No c/o pain or SOB Original Note: Pt having frequent outburst yelling at his visitor. Lab was able to obtain am draw but pt now threatening to leave AMA. notified. [employer] was called in at 2200 to eric insertion spot per . 25% concentrated Albumin given at 1999 on 11/30.
[2022-12-01 05:12] LABS: Add Manual Diff / Slide Review NO; Basophils Absolute Auto 0 /uL (0-100); Basophils Percent Auto 0.8 % (0-2); Eosinophils Absolute Auto 100 /uL (0-450); Eosinophils Percent Auto 1.3 % (2-4); Hemoglobin 9.1 g/dL (13.5-17.5); Lymphocytes Absolute Auto 2200 /uL (1100-4500); Lymphocytes Percent Auto 39.6 % (25-40); Mean Corpuscular Volume 99.9 fL (80-100); Monocytes Absolute Auto 400 /uL (0-900); Monocytes Percent Auto 6.4 % (3-14); Neutrophils Absolute Auto 2900 /uL (1500-7000); Neutrophils Percent Auto 51.9 % (50-75); Platelet Count 110 X10^3/uL (150-400); Red Cell Distribution Width 13.6 % (11.6-14.8); White Blood Cell Count 5.5 X10^3/uL (4.5-11.0)
[2022-12-01 05:21] LABS: Alanine Aminotransferase 20 IU/L (<50); Albumin 3.1 g/dL (3.5-5.0); Albumin Globulin Ratio 0.9 (1.0-2.8); Alkaline Phosphatase 207 U/L (38-126); Aspartate Aminotransferase 111 IU/L (17-59); BUN Creatinine Ratio 6.8 (6-22); Bilirubin Total 2.1 mg/dL (0.2-1.3); Blood Urea Nitrogen 6 mg/dL (9-20); Calcium 7.7 mg/dL (8.4-10.2); Carbon Dioxide 32 mmol/L (22-32); Chloride 97 mmol/L (98-107); Estimated Glomerular Filt Rate > 60 mL/min (>60); Globulin 3.4 g/dL (1.7-4.1); Glucose 116 mg/dL (70-100); HEMOLYSIS < 15 (0-50); Potassium 3.2 mmol/L (3.4-5.1); Sodium 139 mmol/L (137-145); Total Protein 6.5 g/dL (6.3-8.2)
--- NOTE | 2022-12-01 06:19 | DI.RAD.S_ITS ---
PROCEDURE: XR CHEST 1V INDICATIONS: s/p R thoracentesis TECHNIQUE: One view of the chest was acquired. COMPARISON: [facility], CR, XR CHEST 1V, 11/29/2022, 20:33. FINDINGS: Surgical changes and devices: None. Lungs and pleura: Lungs are clear. No pleural pneumothorax. Decreased, small to moderate right pleural effusion. Moderate right mid and lower lung airspace opacity. Mediastinum: Mediastinal contours appear normal. Heart size is normal. Bones and chest wall: No suspicious bony lesions. Overlying soft tissues appear unremarkable. IMPRESSION: 1. Decreased right pleural effusion. 2. Right lung pneumonia. Continued plain film surveillance is recommended to ensure resolution, and to exclude underlying or central malignancy. Dictated by: Zaria Cabral M.D. on 12/01/2022 at 8:00 Approved by: Zaria Cabral M.D. on 12/01/2022 at 8:01
--- NOTE | 2022-12-01 06:22 | PM.EVENT ---
Event Note Date Patient Seen: 12/01/22 Time Patient Seen: 05:00 Event Note (Rapid Response, Code, or fall): Patient continued to have persistent tachycardia and episodes of hypotenstion. He was noted to have a large right pleural effusion. He did receive IV albumin 25% with some improvement in his blood pressure, but remained tachycardic and borderline hypotensive. Due to concern about possible hemodynamic compromise due to large pleural effusion decision was made to undergo thoracentensis urgently. 1500cc of yellow clear liquid were removed. Please see procedure note for details.
--- NOTE | 2022-12-01 06:28 | PM.PROC.1 ---
Procedures Date/Time Date of procedure: 12/01/22 Time of procedure: 05:00 General Procedure description: Time Out performed: Yes Indication: Large right pleural effusion Procedure. Right paracentesis Location: Right side of back, mid-scapular line Local anesthetic used: Yes, Lidocane 1% Amount of anesthesia used: 5mL Bedside ultrasound used: yes Preparation: sterile prep and drape Amount of fluid obtained: 1500cc Fluid: yellow, clear liquid Size of needle used: 24 Post procedure exam: patient coughing, lightheaded Patient tolerate procedure: yes, with coughing once procedure finished Complications: None Additional comments: Catheter removed with patient humming. Stat xray ordered after completion of thoracentesis to evaluate size of pleural effusion and rule out pneumothorax
[2022-12-01] MEDS: ALBUMIN HUMAN 25 GM/100 ML VIAL IV (06:30)
--- NOTE | 2022-12-01 07:42 | PM.PN.EICU ---
Subjective Subjective IF CAMERA ACTIVATED, patient seen via real-time interactive audiovisual communication: Camera activated Consent obtained for tele-jumpbasting facing baster care: Yes Patient Location: ICU Provider location (State): [place] Other participants/roles: RN, hospitalist Interval history: Patient Summary: 57 yo man with PMH Of ETOH abuse, seizures, and liver cirrhosis presented 11/29/22 with SOB, abdominal bloating, and LE edema. CT of abdomen showed cirrhotic liver, asciters, and moderate to large R pleural effusion. He underwent paracentesis (6L removed) 11/30. He was admitted to ICU given low BP (which responded to albumin) and concern for ETOH withdrawal. Recent events: This morning he underwent R thoracentesis and had 1.5L removed. Current Medications Current Medications Medications: Home Medications No Known Home Medications 02/23/21 [History Confirmed 11/30/22] Visit Medications (administered) Generic Name Dose Route Start Last Admin Trade Name Freq PRN Reason Stop Dose Admin Enoxaparin Sodium 40 mg 11/30/22 09:00 11/30/22 08:34 Enoxaparin 40 Mg/0.4 Ml Syringe SUBCUT 40 mg DAILY MELLISSA Administration Folic Acid 1 mg 11/30/22 09:00 11/30/22 09:28 Folic Acid 1 Mg Tablet PO 1 mg DAILY MELLISSA Administration Albumin Human 25 gm in 100 mls @ 60 mls/hr 12/01/22 06:17 12/01/22 06:30 Albuminar IV 12/01/22 07:56 60 mls/hr NOW ONE Administration Multivitamins 1 tab 11/30/22 09:00 11/30/22 08:32 Multivitamin 1 Tablet PO 1 tab DAILY MELLISSA Administration Pantoprazole Sodium 40 mg 11/30/22 07:00 11/30/22 08:[address] 40 Mg Tablet PO 40 mg 0700 MELLISSA Administration Thiamine HCl 100 mg 11/30/22 09:00 11/30/22 08:32 Thiamine 100 Mg Tablet PO 100 mg DAILY MELLISSA Administration Objective Labs 12/01/22 04:30 12/01/22 04:30 Labs: Laboratory Results - last 24 hr 11/30/22 11/30/22 11/30/22 09:16 09:16 09:16 WBC 6.1 RBC 2.76 L Hgb 9.7 L Hct 27.7 L MCV 100.6 H MCH 35.3 H MCHC 35.1 RDW 14.2 Plt Count 116 L Neut % (Auto) Lymph % (Auto) Craig % (Auto) Eos % (Auto) Baso % (Auto) Neut # (Auto) Lymph # (Auto) Craig # (Auto) Eos # (Auto) Baso # (Auto) Sodium 140 Potassium 3.6 Chloride 99 Carbon Dioxide 31 BUN 5 L Creatinine 0.73 Estimated GFR > 60 BUN/Creatinine Ratio 6.8 Glucose 96 Lactate 3.2 H Calcium 7.9 L Total Bilirubin 2.8 H AST 118 H ALT 21 Alkaline Phosphatase 160 H Total Protein 7.0 Albumin 3.3 L Globulin 3.7 Albumin/Globulin Ratio 0.9 L Nasal Screen MRSA (PCR) 11/30/22 11/30/22 12/01/22 11:18 11:33 04:30 WBC RBC Hgb Hct MCV MCH MCHC RDW Plt Count Neut % (Auto) Lymph % (Auto) Craig % (Auto) Eos % (Auto) Baso % (Auto) Neut # (Auto) Lymph # (Auto) Craig # (Auto) Eos # (Auto) Baso # (Auto) Sodium 139 Potassium 3.2 L Chloride 97 L Carbon Dioxide 32 BUN 6 L Creatinine 0.88 Estimated GFR > 60 BUN/Creatinine Ratio 6.8 Glucose 116 H Lactate 3.6 H Calcium 7.7 L Total Bilirubin 2.1 H AST 111 H ALT 20 Alkaline Phosphatase 207 H Total Protein 6.5 Albumin 3.1 L Globulin 3.4 Albumin/Globulin Ratio 0.9 L Nasal Screen MRSA (PCR) Not detected 12/01/22 04:30 WBC 5.5 RBC 2.60 L Hgb 9.1 L Hct 26.0 L MCV 99.9 MCH 35.0 H MCHC 35.0 RDW 13.6 Plt Count 110 L Neut % (Auto) 51.9 Lymph % (Auto) 39.6 Craig % (Auto) 6.4 Eos % (Auto) 1.3 L Baso % (Auto) 0.8 Neut # (Auto) 2900 Lymph # (Auto) 2200 Craig # (Auto) 400 Eos # (Auto) 100 Baso # (Auto) 0 Sodium Potassium Chloride Carbon Dioxide BUN Creatinine Estimated GFR BUN/Creatinine Ratio Glucose Lactate Calcium Total Bilirubin AST ALT Alkaline Phosphatase Total Protein Albumin Globulin Albumin/Globulin Ratio Nasal Screen MRSA (PCR) Exam Vital Signs (past 8 hours): - 12/01/22 00:04 12/01/22 04:30 12/01/22 03:00 Temperature 98.3 F Pulse Rate 124 H 128 H Respiratory Rate 16 27 H Blood Pressure 103/60 73/45 L Pulse Oximetry 96 95 94 Oxygen Delivery Method Nasal Cannula Oxygen Flow Rate 2 Oxygen Delivery Method Nasal Cannula Oxygen Flow Rate 2 Narrative Exam Narrative: Patient seen over two way audio visual system, resting in bed. 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 Platelets are 110s -monitor daily CBC GI: monitor LFTs FEN/Renal:stable renal function -daily BMP -replace K and mag as needed PPx:protonix and SQ heparin CCT spent 55 min
[2022-12-01 08:33] LABS: Magnesium 1.1 mg/dL (1.6-2.3)
[2022-12-01] MEDS: MULTIVITAMIN 1 TABLET 1 TAB PO (08:59)
[2022-12-01] MEDS: LORazepam 1 MG TABLET PO (08:59)
[2022-12-01] MEDS: THIAMINE 100 MG TABLET PO (09:00)
[2022-12-01] MEDS: FOLIC ACID 1 MG TABLET PO (09:00)
[2022-12-01] MEDS: SPIRONOLACTONE 25 MG TABLET 50 MG PO (09:00)
[2022-12-01] MEDS: PANTOPRAZOLE DR 40 MG TABLET PO (09:01)
[2022-12-01] MEDS: ENOXAPARIN 40 MG/0.4 ML SYRINGE SUBCUT (09:01)
[2022-12-01] MEDS: MAGNESIUM SULFATE 4 GM/100 ML PIGGYBACK IV (09:01)
[2022-12-01 09:07] LABS: Phosphorous 3.6 mg/dL (2.5-4.5)
--- NOTE | 2022-12-01 10:27 | PC.NURSE ---
Addendum entered by Juju Reaves R.N. 12/01/22 18:40: Pt continuing to refuse blood draws, updated Dr Blum. Have had to run K at 50ml/hr, due to pt c/o of pain with infusion. Precedex is ordered per Dr Krishnan, bed is low and locked, call light within reach, will continue to monitor. Original Note: Dayshift note: Pt refusing additional blood draws, stating I hate needles, was able to administer most of his am meds with the exception of PO K stating that's to big and I don't want the IV, it thompson. Jst leave me alone I'm tired Educated pt on the importance of lab draws and taking all of his medications, pt continued to refuse. CIWA was initially 11, administered 2mg PO Ativan, CIWA came down to 6. Breakfast tray was unacceptable, pt stated that the private eye should be taken out and shot in the head. This nurse offered pudding and clear ensure that was acceptable. Pt states that he just wants to sleep without being bothered. Do not enter sign placed on door. Bed low and locked, alarm on for safety, will continue to monitor.
--- NOTE | 2022-12-01 12:04 | CM.DANOTE ---
Initial DCP Assessment Note Pt is a 57 yo male, currently homeless, living in his car per chart review, presented to the ER w/abd pain and SOB. Patient admits to drinking approx a pint of hard alcohol daily. EtOH level in the ER of 391 Patient admitted for medical management through ETOH w/d, suspected newly diagnosed cirrhosis with acute respiratory failure w/right sided pleural effusion in need of Paracentesis. PCP: Teresa Davila (current?) Payer: Elvis/HUMBERTO Reviewed chart, unable to complete bedside assessment today, according to information gleaned from patient's chart: Patient currently living in his car, some local friends and family may be able to provide assist upon discharge. Patient daily drinker w/hx of ETOH w/d seizures. 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 CM/DRY WALL INSTALLER team will plan to follow closely. Patient would benefit from a full assessment of discharge needs once appropriate, and, if patient will tolerate and allow. CHELSEY Moore Discharge Planning/Care Management CM Discharge Assessment Start: 12/01/22 11:38 Freq: Status: Active Protocol: Document 12/01/22 11:38 CHRISTIAN (Rec: 12/01/22 12:04 [id number]) Discharge Planning Assessment Assigned Translator CHELSEY Delong DPOA/Assigned Designee Name sister Darden Contact Information [phone] Advance Directives? No Advance Directives on File No History Provided By Medical Record Prior Living Arrangements Homeless Comment lives in a car Household Members friend(s) Independent with ADL's Yes Is patient alert and oriented? Yes: ETOH abuse Comment Homeless. Likely return to his car upon discharge. CM/DRY WALL INSTALLER team can discuss prison resources with patient as well as ETOH treatment/addiction resources if patient interested Discharge Plan Homeless Jail Transportation Arrangement likely friends Additional Comment CM/DRY WALL INSTALLER team will plan to follow closely as medical POC unfolds
--- NOTE | 2022-12-01 13:33 | P.PN_ITS ---
Subjective Subjective Interval history: Per friend in the room the patient had an agitated morning now has settled mostly sleeping. Did not completely wake up the patient examined him however he acknowledged I was present. No new complaints from nursing. Exam Vital Signs (past 8 hours): - 12/01/22 08:00 12/01/22 07:00 12/01/22 09:00 Temperature 98.1 F Pulse Rate 116 H Respiratory Rate 21 Blood Pressure 100/55 L Pulse Oximetry 96 96 Oxygen Delivery Method Nasal Cannula Nasal Cannula Oxygen Flow Rate 2 2 12/01/22 09:44 12/01/22 11:00 12/01/22 05:45 Temperature Pulse Rate 122 H 130 H Respiratory Rate 18 26 H Blood Pressure 100/55 L Pulse Oximetry 94 92 Oxygen Delivery Method Nasal Cannula Oxygen Flow Rate 2 12/01/22 06:00 12/01/22 06:15 12/01/22 06:15 Temperature Pulse Rate 128 H 129 H Respiratory Rate 18 37 H Blood Pressure 70/43 L Pulse Oximetry 90 L 93 Oxygen Delivery Method Oxygen Flow Rate 12/01/22 06:20 12/01/22 06:20 12/01/22 06:26 Temperature Pulse Rate 128 H Respiratory Rate 23 Blood Pressure 78/48 L 100/55 L Pulse Oximetry 95 Oxygen Delivery Method Oxygen Flow Rate 12/01/22 06:26 12/01/22 06:30 12/01/22 06:45 Temperature Pulse Rate 125 H 123 H 116 H Respiratory Rate 25 H 23 19 Blood Pressure Pulse Oximetry 96 95 94 Oxygen Delivery Method Oxygen Flow Rate 12/01/22 07:00 12/01/22 07:15 12/01/22 07:30 Temperature Pulse Rate 121 H 119 H 118 H Respiratory Rate 26 H 26 H 26 H Blood Pressure Pulse Oximetry 95 95 96 Oxygen Delivery Method Oxygen Flow Rate 12/01/22 07:45 12/01/22 08:00 12/01/22 08:15 Temperature Pulse Rate 118 H 113 H 116 H Respiratory Rate 19 17 18 Blood Pressure Pulse Oximetry 94 92 92 Oxygen Delivery Method Oxygen Flow Rate 12/01/22 08:30 12/01/22 08:45 12/01/22 09:00 Temperature Pulse Rate 121 H 125 H 124 H Respiratory Rate 19 24 22 Blood Pressure Pulse Oximetry 94 92 93 Oxygen Delivery Method Oxygen Flow Rate 12/01/22 09:15 12/01/22 09:30 12/01/22 09:45 Temperature Pulse Rate 125 H 125 H 124 H Respiratory Rate 21 23 23 Blood Pressure Pulse Oximetry 92 93 91 Oxygen Delivery Method Oxygen Flow Rate 12/01/22 10:00 12/01/22 10:15 12/01/22 10:30 Temperature Pulse Rate 121 H 119 H 116 H Respiratory Rate 19 18 17 Blood Pressure Pulse Oximetry 90 L 91 90 L Oxygen Delivery Method Oxygen Flow Rate 12/01/22 10:45 12/01/22 11:00 12/01/22 11:15 Temperature Pulse Rate 115 H 113 H 112 H Respiratory Rate 18 17 16 Blood Pressure Pulse Oximetry 90 L 91 91 Oxygen Delivery Method Oxygen Flow Rate 12/01/22 11:30 12/01/22 11:45 12/01/22 12:00 Temperature Pulse Rate 115 H 109 H 111 H Respiratory Rate 16 20 26 H Blood Pressure Pulse Oximetry 93 94 92 Oxygen Delivery Method Oxygen Flow Rate 12/01/22 12:15 12/01/22 12:30 12/01/22 12:45 Temperature Pulse Rate 109 H 109 H 109 H Respiratory Rate 25 H 21 25 H Blood Pressure Pulse Oximetry 92 92 92 Oxygen Delivery Method Oxygen Flow Rate 12/01/22 13:07 12/01/22 13:00 Temperature Pulse Rate 113 H 111 H Respiratory Rate 24 23 Blood Pressure Pulse Oximetry 94 Oxygen Delivery Method Oxygen Flow Rate Oxygen Delivery Method Nasal Cannula Oxygen Flow Rate 2 Narrative Exam Narrative: GEN: Sleeping comfortably does not appear to be any acute medical distress CV: regular, tachycardic PULM: significantly diminished breath sounds on the right ABD: soft, distended, diminished bowel sounds EXT: warm and well perfused with 1+ edema NEURO: awake, alert, oriented, with no focal deficits Objective Labs 12/01/22 04:30 12/01/22 04:30 Labs: Laboratory Results - last 24 hr 11/30/22 11/30/22 11/30/22 00:20 00:25 00:30 WBC RBC Hgb Hct MCV MCH MCHC RDW Plt Count Neut % (Auto) Lymph % (Auto) [place] % (Auto) Eos % (Auto) Baso % (Auto) Neut # (Auto) Lymph # (Auto) [place] # (Auto) Eos # (Auto) Baso # (Auto) Sodium Potassium Chloride Carbon Dioxide BUN Creatinine Estimated GFR BUN/Creatinine Ratio Glucose Calcium Phosphorus Magnesium Total Bilirubin AST ALT Alkaline Phosphatase Total Protein Albumin Globulin Albumin/Globulin Ratio Ref Test (Refrig) Comment Comment Comment 12/01/22 12/01/22 12/01/22 04:30 04:30 04:30 WBC 5.5 RBC 2.60 L Hgb 9.1 L Hct 26.0 L MCV 99.9 MCH 35.0 H MCHC 35.0 RDW 13.6 Plt Count 110 L Neut % (Auto) 51.9 Lymph % (Auto) 39.6 [place] % (Auto) 6.4 Eos % (Auto) 1.3 L Baso % (Auto) 0.8 Neut # (Auto) 2900 Lymph # (Auto) 2200 [place] # (Auto) 400 Eos # (Auto) 100 Baso # (Auto) 0 Sodium 139 Potassium 3.2 L Chloride 97 L Carbon Dioxide 32 BUN 6 L Creatinine 0.88 Estimated GFR > 60 BUN/Creatinine Ratio 6.8 Glucose 116 H Calcium 7.7 L Phosphorus Magnesium 1.1 L Total Bilirubin 2.1 H AST 111 H ALT 20 Alkaline Phosphatase 207 H Total Protein 6.5 Albumin 3.1 L Globulin 3.4 Albumin/Globulin Ratio 0.9 L Ref Test (Refrig) 12/01/22 04:30 WBC RBC Hgb Hct MCV MCH MCHC RDW Plt Count Neut % (Auto) Lymph % (Auto) [place] % (Auto) Eos % (Auto) Baso % (Auto) Neut # (Auto) Lymph # (Auto) [place] # (Auto) Eos # (Auto) Baso # (Auto) Sodium Potassium Chloride Carbon Dioxide BUN Creatinine Estimated GFR BUN/Creatinine Ratio Glucose Calcium Phosphorus 3.6 Magnesium Total Bilirubin AST ALT Alkaline Phosphatase Total Protein Albumin Globulin Albumin/Globulin Ratio Ref Test (Refrig) [facility] Medical History Anxiety and depression (~1989) Chicken pox (~1969) Substance abuse (~1987) Family History Mother Depression Father Parkinson's disease, Lewy body Social History household members: friend(s) Smoking Status: Current every day smoker alcohol intake: current Assessment & Plan Assessment & Plan narrative: 1.Probable acute decompensated newly diagnosed cirrhosis with acute respiratory failure, currently stable on O2 supplementation at 2 liters/minute with O2 sat of 94% - decompensated with moderate ascites and right sided pleural effusion, both sites have had drainage as below -secondary to alcohol abuse -patient noted to have cirrhotic appearing liver on imaging, with elevated INR, elevated bilirubin -MELD of 18, child duncan class C -albumin 2.8 -para performed with 6L clear yellow liquid -ordered for 50cc of 25% albumin -rule out SBP with cell count from peritoneal fluid -send peritoneal fluid labs and cultures -plan for thoracentesis which was completed earlier this a.m., suspect this is secondary to transudative however unclear of labs were sent from the thoracentesis -for now given ceftriaxone for possible SBP -follow up cultures -low salt diet, and 2L fluid restriction -started lasix 40mg daily, spironolactone 100mg daily 2. Alcohol abuse with previous withdrawal seizures -last drink within 24 hours prior to presentation -initial EtOH level of 391 -place on CIWA scale with benzos prn -ordered for MVI, thiamine, folate -secondary tachycardia noted 3. Hiatal hernia -daily protonix Follow labs and clinically. CODE: DNR Proxy: Adela Bernstein, sister
[2022-12-01] MEDS: POTASSIUM CHLORIDE IN WATER 10 MEQ/100 ML PIGGYBACK 100 MEQ IV ×3 (15:06→16:41)
--- NOTE | 2022-12-01 20:28 | PM.ICURNDS ---
- Date Patient Seen: 12/01/22 Time Patient Seen: 20:29 :: This patient was seen via real time interactive two-way audiovisual telecommunication. Note: Patient is agitated and angry at staff. CIWA score is increasing and plan to start preceded as needed to seek RASS goal -1 to 0. D/w RN at bedside.
[2022-12-01] MEDS: PIPERACILLIN/TAZO 3.375 GM in SODIUM CHLORIDE 0.9% 100 ML IV (20:42)
--- NOTE | 2022-12-01 23:44 | PC.NURSE ---
Addendum entered by Geovanny Spence KYLE 12/02/22 00:42: Around 0030 patient's visitor came out of the room and stated that the patient had to use the restroom. When entering the room patient appeared to be sleepy and it took several prompts to wake the patient up. DARBY Prince came into the room to assist. DARBY Prince educating patient on using BCS rather than going to bathroom due to the patient's heart rate. It took about 5 minutes to get the patient up to the bedside. Patient was noted to be swaying back and forth while sitting on the side of the bed as well falling asleep. DARBY Leiva came into the patients room and continued to educate the patient on keeping the patient safe and about the patients heart rate. Patient was admitted about being able to ambulate to the bathroom stating I can make it , I wont fall. When this CARBIDE DIE MAKER stepped back, laying on the window seat was a bag that contained one unopened 25 oz Tall Boy and an open one. These cans were removed from the room. RN and Coord aware Original Note: Around 2340 this CARBIDE DIE MAKER went into the patients room to take vitals. When standing at the bedside nearest to the window on the patient bedside table there was a small of beer. There was a white paper cup with a straw sitting on the bed side table. When smelt the liqud smelled and looked like beer. Cup was removed from the patients room and given to DARBY Leiva and reported to RN and Coord.
[2022-12-02] VITALS: BP 91/52; PULSE 144; RESP 24; TEMP 36.2; O2SAT 94
--- NOTE | 2022-12-02 00:10 | PC.NURSE ---
Addendum entered by Sima Biswas R.N. 12/02/22 01:40: came to bedside and spoke with pt about demanding to leave AMA. Security called to escort pts visitor to the ER exit, pts visitor calm and agreed to come back when the taxi service is open to pick him up. They state they live in their vehicle which is not running and parked several blocks away. Pt has an unsteady gait and unable to keep his eyes open. He has been noncompliant with care, meds, and orders. VH=888's and BP=80's/50's. Bed alarm on, door open and close to nurses station. Original Note: Pt received x2 K+ riders. Zosyn ordered. Pt dsating with sleep, when reapplying NC alcohol odor noted. REGIONAL ENVIRONMENTAL MANAGER found beer in a cup when pts friend was out of the room. Notified MD and NTL. Held Precedex order.
--- NOTE | 2022-12-02 01:28 | PM.EVENT ---
Event Note Date Patient Seen: 12/02/22 Time Patient Seen: 01:00 Event Note (Rapid Response, Code, or fall): Informed by RN that patient and friend were both drinking alcohol in the room. Alcohol was removed. His friend was informed that he would have to leave due to hospital policy. His friend left without incident. Patient was initially adamant that he would leave against medical advice if his friend left the hospital. The patient was informed that he was still critically ill, his current medical condition was discussed including that he still had decompensated cirrhosis, he was tachycardic with heart rate in the 140s, blood pressure in the systolic 90s. In detail, it was discussed that he was at risk of further injury and if he left against medical advice. At time of this note, patient has decided to stay until at least later this morning. Per nursing he was been refusing lab draws, medications, IV line insertion along with various other interventions.
[2022-12-02 03:00] VITALS: O2SAT 94
[2022-12-02 04:00] VITALS: PULSE 141; RESP 20
--- NOTE | 2022-12-02 06:28 | PM.PN.EICU ---
Subjective Subjective IF CAMERA ACTIVATED, patient seen via real-time interactive audiovisual communication: Camera activated Consent obtained for tele-players club representative care: Yes Patient Location: ICU Provider location (State): [place] Other participants/roles: RN, hospitalist Interval history: Patient Summary: 57 yo man with PMH Of ETOH abuse, seizures, and liver cirrhosis presented 11/29/22 with SOB, abdominal bloating, and LE edema. CT of abdomen showed cirrhotic liver, asciters, and moderate to large R pleural effusion. He underwent paracentesis (6L removed) 11/30. He was admitted to ICU given low BP (which responded to albumin) and concern for ETOH withdrawal. 12/01: he underwent R thoracentesis and had 1.5L removed. BP low but improved with albumin. HR 110-120s. Patient refusing lab draws, IV insertions, medications. Recent events: Overnight patient and friend were drinking alcohol in room. Alcohol removed and patient's friend asked to leave. Patient wanted to signout AMA. Hospitalist counseled patient that he was still critically ill and recommended patient stay to continue medical treatment and patient decided to stay. Current Medications Current Medications Medications: Home Medications No Known Home Medications 02/23/21 [History Confirmed 11/30/22] Visit Medications (administered) Generic Name Dose Route Start Last Admin Trade Name Freq PRN Reason Stop Dose Admin Enoxaparin Sodium 40 mg 11/30/22 09:00 12/01/22 09:01 Enoxaparin 40 Mg/0.4 Ml Syringe SUBCUT 40 mg DAILY MELLISSA Administration Folic Acid 1 mg 11/30/22 09:00 12/01/22 09:00 Folic Acid 1 Mg Tablet PO 1 mg DAILY MELLISSA Administration dexmedeTOMIDine in 0.9 % NaCL 400 mcg in 100 mls @ 3.325 mls/hr 12/01/22 22:00 12/02/22 01:36 Precedex IV Not Given TITRATE MELLISSA Protocol 0.2 MCG/KG/HR Piperacillin Sod/Tazobactam 100 mls @ 25 mls/hr 12/01/22 19:30 12/02/22 06:24 Sod 3.375 gm/ Sodium Chloride IV Not Given Q8H MELLISSA Lorazepam 0 mg 11/30/22 00:15 12/01/22 08:59 Lorazepam 1 Mg Tablet PO 2 mg CIWAPRN PRN Administration Alcohol Withdrawal Protocol Multivitamins 1 tab 11/30/22 09:00 12/01/22 08:59 Multivitamin 1 Tablet PO 1 tab DAILY MELLISSA Administration Pantoprazole Sodium 40 mg 11/30/22 07:00 12/01/22 09:[address] 40 Mg Tablet PO 40 mg 0700 MELLISSA Administration Thiamine HCl 100 mg 11/30/22 09:00 12/01/22 09:00 Thiamine 100 Mg Tablet PO 100 mg DAILY MELLISSA Administration Objective Labs 12/01/22 04:30 12/01/22 04:30 Labs: Laboratory Results - last 24 hr 11/30/22 11/30/22 11/30/22 00:20 00:25 00:30 Phosphorus Magnesium Ref Test (Refrig) Comment Comment Comment 12/01/22 12/01/22 04:30 04:30 Phosphorus 3.6 Magnesium 1.1 L Ref Test (Refrig) Exam Vital Signs (past 8 hours): - 12/02/22 00:00 12/02/22 00:00 12/02/22 04:00 Temperature 97.2 F L Pulse Rate 144 H 141 H Respiratory Rate 24 20 Blood Pressure 91/52 L Pulse Oximetry 94 Oxygen Delivery Method Nasal Cannula Oxygen Flow Rate 2 12/01/22 23:00 12/02/22 03:00 12/02/22 04:00 Temperature Pulse Rate Respiratory Rate Blood Pressure Pulse Oximetry 94 94 Oxygen Delivery Method Nasal Cannula Nasal Cannula Nasal Cannula Oxygen Flow Rate 2 2 Oxygen Delivery Method Nasal Cannula Oxygen Flow Rate 2 Narrative Exam Narrative: Patient seen over 2 way audio visual system to be sleeping peacefully in bed. 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 Pt. won't allow for BP cuff monitoring. Tachycardia probably secondary to ETOH withdrawal but consider more albumin if BP low again. Pulm:? Patient currently on 2L nc with Pox > 90 ID: cell count not indicative of SBP so Ceftriaxone was stopped Heme: INR 2 secondary to liver cirrhosis, hgb relatively stable at 9 compared to yesterday.? Platelets are 110s -monitor daily CBC if patient agreeable to lab draws GI: monitor LFTs FEN/Renal:stable renal function -daily BMP -replace K and mag as needed PPx:protonix and SQ heparin CCT spent: 40 min
[2022-12-02 08:00] VITALS: BP 109/61; PULSE 140; RESP 23; TEMP 37.2; O2SAT 93
[2022-12-02] MEDS: POTASSIUM CHLORIDE 20 MEQ/15 ML UDC 40 MEQ PO (08:30)
[2022-12-02] MEDS: FOLIC ACID 1 MG TABLET PO (08:30)
[2022-12-02] MEDS: ENOXAPARIN 40 MG/0.4 ML SYRINGE SUBCUT (08:30)
[2022-12-02] MEDS: THIAMINE 100 MG TABLET PO (08:30)
[2022-12-02] MEDS: MULTIVITAMIN 1 TABLET 1 TAB PO (08:30)
[2022-12-02] MEDS: MAGNESIUM SULFATE 4 GM/100 ML PIGGYBACK IV (08:46)
[2022-12-02 10:38] VITALS: O2SAT 91
--- NOTE | 2022-12-02 11:39 | PC.NURSE ---
Addendum entered by Elisabet Andino R.N. 12/02/22 12:14: Provider spoke with pt about risks of leaving without continuing medical treatment, pt still stating he is leaving. Against medical advice paperwork signed by pt and this RN. Pt verbalized understanding the risks of leaving, pt stated, ...but I'm not going to get any better anyway. IV removed, telemetry removed. Pt dressed self, transfered self into wheelchair and wheeled self to elevator. Provider and charge nurse notified and aware. Original Note: Day shift: Pt resting in bed. BP stable, tachycardia, BP stable, O2 98% on 2L. CIWA 0, denies pain. A&O, unsure of weekday. Pt verbalizes that he wants to leave the hospital. This RN explained that it is the pt's right to leave against medical advice. Pt agreeable to morning medications, stating, I just want to sleep. Pt denies memory of previous shift. Pt agreeable for lab draw when laborer chemical processing came for scheduled bloodwork. Pt stated, I'm ready to get out of here. I need a wheelchair. Provider Dr. Gregorio notified and stated coming to bedside. Pt agreeable to talk with provider prior to leaving AMA. Care ongoing. Will continue to monitor.
[2022-12-02 11:48] LABS: INR 2.4 (0.9-1.3); Prothrombin Time 27.8 SECONDS (10.1-12.7)
--- NOTE | 2022-12-02 12:49 | CM.DPC ---
DCP Continued: WIRER PASSENGER CAR reviewed EMR. Per event note, provider stated patient and friend were drinking alcohol in room last night. After patient was asked to leave, patient requested to leave AMA. After conversation with provider, patient agreed to stay until this am. Per nursing staff, patient requested to leave AMA. Patient left prior to being seen by WIRER PASSENGER CAR team. Per nursing staff, patient did not appear open to additional resources for detox or housing at this time. Patient signed paper work and left with friend. Patient left prior to being seen by this author. Plan: patient to d/c AMA back to his car with friend. CM team will continue to follow as necessary CHELSEY Pa
--- NOTE | 2022-12-02 14:55 | PM.DS.1 ---
History of Present Illness History of Present Illness Date Patient Seen: 12/02/22 Chief complaint: Abd Pain, SOB Narrative: Patient expressed that he wished to leave Against Medical Advice and was willing to sign papers to do so. He completed this. Discharge Providers Provider Date of admission: 11/29/22 23:57 Discharge Date: 12/02/22 Primary care physician: Teresa Davila PA-C Consults: 11/30/22 11:29 Consult to Tele-marketing production manager Routine Comment: Consulting Provider: Deja Tele-intensivists Reason for consultation: Instrument Engineer services 11/30/22 11:46 Consult to Dietitian, Adult Routine Comment: Reason For Exam: malnutirion Discharge provider: Kimberly Blum MD Summary Hospital Course Discharge Diagnosis: Acute decompensated cirrhosis Acute respiratory failure Moderate ascites Right sided pleural effusion Alcohol abuse Elevated INR Elevated bilirubin MELD of 18, Child Escalante class C Hypoalbuminemia Tachycardia Alcohol withdrawal Hiatal hernia Other past medical history/comorbidities: Anxiety and depression (~1989) Chicken pox (~1969) Substance abuse (~1987) Hospital Course: Mr. Bernstein is a 57M with PMH of alcohol abuse and previous EtOH seizures who presented to the ER with abdominal bloating, lower extremity edema, and shortness of breath. He was drinking alcohol daily, his drinking was approximately a pint of hard alcohol daily. He had last drink earlier on day of presentation. He did not feel like he was withdrawing at time of presentation. He noted initial bloating and edema began about a month ago and has progressively worsened. He has no fevers or chills. In the ED workup was done, vitals notable for afebrile, heart rate 120s, respiratory rate 20s, blood pressure 120s/80s, sats 96% on 2L. Labs notable for WBC 9.1, hgb 10.3, plts 185. Na 141, creatinine 0.70. INR 2.0. Bili 3.0. Albumin 2.8. EtOH level of 391. Urine with 1-5 WBCs, 0-1 bacteria. Urine drug screen negative. Chest xray notable for right sided pleural effusion. CT chest/abdomen/pelvis indicated right sided pleural effusion. He was ordered for IV fluids. He developed worsening shortness of breath and tachycardia. Lasix and spironolactone were ordered but he had little urine output. Paracentesis performed and 6L fluid were removed. He was admitted for further treatment. During this hospital stay patient had greater than 1 L of fluid removed on thoracentesis. With feeling better having paracentesis and thoracentesis patient became agitated in regards to leaving the hospital. He eventually decided to leave Against Medical Advice. Status at Discharge Cognitive/behavioral status at discharge: at baseline, confused Functional status at discharge: wheelchair bound Overall status at discharge: patient is not back to baseline Time Spent with Patient Time spent: Less than 30 minutes Exam Vital Signs (past 8 hours): - 12/02/22 08:00 12/02/22 08:00 12/02/22 08:00 Temperature 99.0 F Pulse Rate 140 H Respiratory Rate 23 Blood Pressure 109/61 Pulse Oximetry 93 93 Oxygen Delivery Method Nasal Cannula Nasal Cannula Oxygen Flow Rate 2 2 12/02/22 10:38 Temperature Pulse Rate Respiratory Rate Blood Pressure Pulse Oximetry 91 Oxygen Delivery Method Room Air Oxygen Flow Rate 0 Oxygen Delivery Method Room Air Oxygen Flow Rate 0 Narrative Exam Narrative: GEN:? Sleeping comfortably does not appear to be any acute medical distress CV: regular, tachycardic PULM: significantly diminished breath sounds on the right ABD: soft, distended, diminished bowel sounds EXT: warm and well perfused with 1+ edema NEURO: awake, alert, oriented, with no focal deficits Objective Labs 12/01/22 04:30 12/01/22 04:30 Labs: Laboratory Results - last 24 hr 12/02/22 11:15 PT 27.8 H INR 2.4 H PFSH Medical History Anxiety and depression (~1989) Chicken pox (~1969) Substance abuse (~1987) Family History Mother Depression Father Parkinson's disease, Lewy body Social History household members: friend(s) Smoking Status: Current every day smoker alcohol intake: current Discharge Plan Discharge Plan Patient Disposition: Left Against Medical Advice Discharge orders & Medications Prescriptions: No Action No Known Home Medications Follow up/Referrals: Teresa Davila PA-C [Primary Care Provider] - Visit Report/Discharge Packet Stand Alone Forms: Patient Portal/API, Stroke Signs & Symptoms Discharge Data Primary Care Provider: Teresa Davila Discharges patient from system. Discharge Date/Time: 12/02/22 12:15
== END 2022-12-02 12:15 | disposition left against medical advice (07) | DRG 280 ==
LOC: ED 17:51 → AC 23:59 → ICU 11-30 11:07
PROVIDERS: Emergency Medicine; Internal Medicine; Student in an Organized Health Care Education/Training Program; Admitting Provider Internal Medicine; Emergency Provider Internal Medicine; PCP Physician Assistant Medical; Referring Provider Emergency Medicine; Visit Provider Internal Medicine
DX: K70.31 Alcoholic cirrhosis of liver with ascites (principal); J96.00 Acute respiratory failure, unspecified whether with hypoxia or hypercapnia; K44.9 Diaphragmatic hernia without obstruction or gangrene; J90 Pleural effusion, not elsewhere classified; F10.139 Alcohol abuse with withdrawal, unspecified; R00.0 Tachycardia, unspecified; E88.09 Other disorders of plasma-protein metabolism, not elsewhere classified; E80.6 Other disorders of bilirubin metabolism; R79.1 Abnormal coagulation profile; F17.210 Nicotine dependence, cigarettes, uncomplicated; Y90.8 Blood alcohol level of 240 mg/100 ml or more; Z53.29 Procedure and treatment not carried out because of patient's decision for other reasons; Z66 Do not resuscitate; Z20.822 Contact with and (suspected) exposure to COVID-19
CPT/HCPCS: 32555; 36415; 71045; 71260; 74177; 76705; 80053; 80076; 80305; 80320; 81003; 81015; 83605; 83690; 83735; 84100; 85025; 85027; 85610; 87040; 87070; 87075; 87077; 87086; 87186; 87205; 87797; 87801; 89051; 93005; 93306; 96365; 96366; 96367; 96375; 99285; J0696; J1650; J2543; J3475; P9041; Q9967